=== PATIENT | female | born 1950 | race Caucasian/White ===

== ENCOUNTER 2016-08-20 18:44 | Inpatient (IN) | payer OTHER ==
[~2016-08-20] VITALS: Ht 152.4 cm; Wt 93.6 kg
[2016-08-20] MEDS: GABAPENTIN 300 MG CAP PO SCH (21:34)
[2016-08-20 23:54] LABS: ADD UMIC YES; URINE BILIRUBIN (Dip) NEGATIVE (NEGATIVE); URINE BLOOD (Dip) NEGATIVE (NEGATIVE); URINE COLOR LT. YELLOW (YELLOW); URINE GLUCOSE (Dip) NEGATIVE (NEGATIVE); URINE KETONES (Dip) NEGATIVE (NEGATIVE); URINE LEUKOCYTE ESTERASE (Dip) TRACE (NEGATIVE); URINE NITRITE (Dip) NEGATIVE (NEGATIVE); URINE TOTAL PROTEIN (Dip) TRACE (NEGATIVE); URINE UROBILINOGEN (Dip) 0.2 E.U./dL (0.1-1.0)
[2016-08-21 00:28] LABS: BACTERIA,URINE OCCASIONAL; SQUAMOUS EPITHELIAL CELL,UR MANY; TRANSITIONAL EPI CELLS,URINE OCCASIONAL; URINE RBCS NONE SEEN /HPF (0)
[2016-08-21] MEDS ORDERED: MAGNESIUM HYDROXIDE 30ML CUP PO PRN (02:10)
[2016-08-21] MEDS ORDERED: LACTULOSE 30ML CUP PO PRN (02:10)
[2016-08-21] MEDS ORDERED: BISACODYL 10 MG SUPP PR PRN (02:10)
[2016-08-21] MEDS ORDERED: ACETAMINOPHEN 325 MG TAB PO PRN (02:10)
[2016-08-21 07:40] LABS: ADD SCAN DIFF NO
[2016-08-21 07:47] LABS: BASOPHILS % 0.3 % (0.0-2.0); EOSINOPHILS # 0.3 10^3/ul (0.0-0.5); EOSINOPHILS % 6.3 % (0.0-7.0); HEMATOCRIT 24.7 % (37.0-47.0); HEMOGLOBIN 7.2 g/dl (12.0-16.0); LYMPHOCYTES # 1.3 10^3/ul (0.8-2.9); LYMPHOCYTES % 32.7 % (15.0-51.0); MEAN CORPUSCULAR HEMOGLOBIN 21.9 pg (29.0-33.0); MEAN CORPUSCULAR HGB CONC 29.1 g/dl (32.0-37.0); MEAN CORPUSCULAR VOLUME 75.1 fl (82.0-101.0); MONOCYTE # 0.4 10^3/ul (0.3-0.9); MONOCYTES % 9.9 % (0.0-11.0); NEUTROPHILS % 50.5 % (39.0-77.0); PLATELET COUNT 153 10^3/UL (140-415); RED BLOOD COUNT 3.29 10^6/ul (4.20-5.40); RED CELL DISTRIBUTION WIDTH 13.5 % (11.5-14.5); WHITE BLOOD COUNT 3.9 10^3/ul (4.8-10.8)
[2016-08-21 07:59] LABS: POTASSIUM 3.8 mmol/L (3.5-5.1)
[2016-08-21 08:00] VITALS: BP 150/67; PULSE 64; RESP 18
[2016-08-21 08:01] LABS: ALBUMIN/GLOBULIN RATIO 1.03; BILIRUBIN,INDIRECT 0.1 mg/dl (0-1.1); BILIRUBIN,TOTAL 0.1 mg/dl (0.2-1.3); CREATININE 1.17 mg/dl (0.44-1.00); TOTAL PROTEIN 5.9 g/dl (6.1-8.1)
[2016-08-21 08:02] LABS: CALCIUM 8.2 mg/dl (8.4-10.2)
--- NOTE | 2016-08-21 08:48 | CONS ---
DATE OF ADMISSION: 08/20/2016 DATE OF CONSULTATION: 08/21/2016 TYPE OF CONSULTATION: Rehabilitation post-admission evaluation. REHABILITATION IMPAIRMENT CATEGORY: Other orthopedic injury with patient status post right total kn ee replacement. ACTIVE COMORBIDITIES: 1. Acute pain syndrome. 2. Status post acute respiratory failure. 3. Diabetes mellitus. 4. Hypertension. 5. Gastroesophageal reflux disease. 6. Impairments in self-care and mobility. HISTORY OF PRESENT ILLNESS: The patient is a very pleasant 66-year-old female with a history of hyp ertension, diabetes mellitus and gastroesophageal reflux disease who underwent a right total knee re placement for severe increasing right knee pain that failed conservative measures. The patient's po stoperative course was notable for acute respiratory failure and acute on chronic diastolic heart fa ilure. The patient was noted to be significantly impaired from self-care and mobility as compared t o baseline, and has been cleared to transfer to the rehabilitation unit for comprehensive interdisci plinary rehab care. FUNCTIONAL HISTORY: Prior to recent events, she was independent in self-care tasks and mobility. C urrently, she requires maximal assist for self-care and moderate to maximal assist for mobility task s. I have reviewed the preadmission screen and the patient's current functional status is consistent wi th the preadmission screen. SOCIAL HISTORY: The patient lives at home with family and hopes to return there upon discharge. PAST MEDICAL HISTORY: 1. Hypertension. 2. Diabetes mellitus. 3. Hypercholesterolemia. 4. Gastroesophageal reflux disease. 5. History of hernia repair. 6. History of left ear mastoidectomy. 7. History of hemorrhoidectomy. CURRENT MEDICATIONS: 1. Norvasc 10 mg p.o. daily. 2. Tenormin 50 mg p.o. daily. 3. Insulin sliding scale. 4. Colace 100 mg p.o. b.i.d. 5. Neurontin 300 mg p.o. t.i.d. 6. Hydrochlorothiazide 25 mg p.o. daily. 7. Cozaar 100 mg p.o. daily. 8. Protonix 40 mg p.o. daily. 9. Xarelto 10 mg p.o. daily. 10. Senokot p.o. daily p.r.n. ALLERGIES: IODINE. PHYSICAL EXAMINATION: VITAL SIGNS: The patient is currently afebrile with stable vital signs. HEENT: Extraocular motions intact. Oropharynx clear. NECK: Supple. LUNGS: Clear anteriorly. CARDIAC: S1, S2. ABDOMEN: Soft, nontender, positive bowel sounds. NEUROLOGIC: She is awake and alert and oriented x3. She can follow simple 1-step commands. Crania l nerves are grossly intact. She demonstrates good strength in bilateral upper extremity and the le ft lower extremity. Dorsiflexion and plantar flexion intact on the right. PLAN: The patient has been admitted for comprehensive interdisciplinary acute rehab and is anticipa butch to tolerate 3 hours of daily therapy in divided doses for at least 5/7 days a week. The treatme nt plan will include: 1. Physical therapy to focus on bed mobility, transfers, and household ambulation with the goal of having patient reach standby assist level. 2. Occupational therapy to focus on hygiene, grooming, dressing, bathing, and toileting activities with the goal of having the patient reach standby assist level. 3. Rehabilitation nursing for carryover of therapeutic interventions, the goal of continent of jerry l and bladder, and the goal of pain adequately managed on oral medications. REHABILITATION BARRIER: Pain. INTERVENTION FOR BARRIER: Comprehensive interdisciplinary approach. ESTIMATED LENGTH OF STAY: 12 days. DISPOSITION GOAL: Home. I acknowledge that I performed a full physical examination on this patient within 24 hours of admiss ion to the rehabilitation unit, and I believe the patient is a good candidate for comprehensive inte rdisciplinary rehab care and is anticipated to make reasonable goals in a reasonable period of time as outlined above. Dictated By: PIPER HOLT/YUNIOR Conf#: [id number] DID#: [id number]
[2016-08-21] MEDS: GABAPENTIN 300 MG CAP PO SCH ×3 (08:53→21:18)
[2016-08-21] MEDS: HYDROCODONE/APAP (5/325) TAB PO PRN (08:53)
[2016-08-21] MEDS: HYDROCHLOROTHIAZIDE 25 MG TAB PO SCH (08:54)
[2016-08-21] MEDS: AMLODIPINE 10 MG TAB PO SCH (08:55)
[2016-08-21] MEDS: ATENOLOL 50 MG TAB PO SCH (08:55)
[2016-08-21] MEDS: DOCUSATE SODIUM 100 MG CAP PO SCH ×2 (08:55→21:18)
[2016-08-21 08:56] VITALS: BP 121/59; PULSE 58; RESP 18
[2016-08-21] MEDS ORDERED: GLUCOSE GEL 15 GRAM TUBE BUCCAL PRN (09:00)
[2016-08-21] MEDS ORDERED: GLUCAGON 1 MG INJ IM PRN (09:00)
[2016-08-21] MEDS ORDERED: GLUCOSE GEL 15 GRAM TUBE PO PRN ×2 (09:00)
[2016-08-21] MEDS ORDERED: DEXTROSE 50% 50 ML SYRINGE IV PRN ×2 (09:00)
--- NOTE | 2016-08-21 10:11 | HP ---
DATE OF ADMISSION: 08/20/2016 HISTORY OF PRESENT ILLNESS: The patient is a 66-year-old female with a past medical history of hype rtension, diabetes, and GERD, who underwent a right total knee replacement for severe increasing rig ht knee pain that failed conservative measures. The patient's postoperative course was notable for acute respiratory failure, acute on chronic diastolic heart failure. The patient is being transferr ed to the acute rehab for further physical therapy and rehabilitation. She was previously independe nt. She is tolerating her medications and therapies currently. PAST MEDICAL HISTORY: Significant for hypertension, diabetes, hypercholesterolemia, GERD, hernia re pair, left ear mastoidectomy history of hemorrhoidectomy. MEDICATIONS: Include: 1. Norvasc. 2. Tenormin. 3. Insulin sliding scale. 4. Colace. 5. Neurontin. 6. Hydrochlorothiazide. 7. Cozaar 8. Protonix. 9. Xarelto. 10. Senokot. ALLERGIES: IODINE. SOCIAL HISTORY: She does not smoke, drink or use drugs. FAMILY HISTORY: No history of kidney disease. REVIEW OF SYSTEMS: A 14-point review of systems was attempted and negative unless otherwise stated . PHYSICAL EXAMINATION: VITAL SIGNS: Temperature 98.3, blood pressure 121/59. HEENT: Normocephalic, atraumatic. Pupils equal, round and reactive. NECK: Supple. HEART: Regular rate and rhythm. ABDOMEN: Soft, nontender, nondistended. Bowel sounds present. LABORATORY EVALUATION: Shows white count 3.9, hemoglobin 7.2, hematocrit 25. Sodium 137, potassium 3.8, BUN 25, creatinine 1.1, albumin 3.0. UA was reviewed on microscopy. Chest x-ray was reviewed with the radiologist. IMPRESSION: 1. Status post right total knee replacement, with failure of outpatient therapy. The patient was a dmitted to acute rehab for physical therapy, as outlined by Dr. Mat Rosales. 2. Postoperative acute respiratory failure, . Appears fairly stable at this time. Consider c ardiology evaluation. 3. Hypertension. Well controlled. Continue regular medications. 4. Diabetes. On sliding scale. Continue regular. 5. Leukopenia. Chart review of old records. Will repeat labs in the morning. 6. Anemia, fairly marked. Check iron stores and start supplemental iron. Probably related to bloo d loss perioperatively. 7. Hyperlipidemia. Continue regular medications. 8. Prophylaxis. On Xarelto. Dictated By: ALEKSANDR CREWS MD DF/YUNIOR Conf#: [id number] DID#: [id number]
[2016-08-21 10:40] VITALS: BP 137/63; PULSE 64; RESP 18
[2016-08-21] MEDS: INSULIN ASPART [NOVOLOG] 3 ML PEN SC SCH ×3 (11:44→21:00)
[2016-08-21] MEDS: ACCU-CHEK XX SCH ×3 (11:44→21:19)
[2016-08-21] MEDS: FERROUS SULFATE (EC) 325 MG TAB PO SCH ×2 (12:00→21:18)
[2016-08-21] MEDS: RIVAROXABAN 10 MG TABLET PO SCH (17:24)
[2016-08-21] MEDS: traMADol 50 MG TAB PO PRN (19:35)
[2016-08-21 20:04] VITALS: BP 138/63; RESP 18
[2016-08-21] MEDS: SENNA TAB PO SCH (21:18)
[2016-08-21] MEDS: ATORVASTATIN 10 MG TAB PO SCH (21:18)
[2016-08-22] MEDS: HYDROCODONE/APAP (5/325) TAB PO PRN ×5 (01:17→23:29)
[2016-08-22] MEDS ORDERED: ACCU-CHEK XX SCH (02:00)
[2016-08-22 06:44] LABS: ADD SCAN DIFF NO
[2016-08-22 06:52] LABS: HEMATOCRIT 25.1 % (37.0-47.0); HEMOGLOBIN 7.4 g/dl (12.0-16.0); MEAN CORPUSCULAR HGB CONC 29.5 g/dl (32.0-37.0); MEAN CORPUSCULAR VOLUME 74.5 fl (82.0-101.0); MEAN PLATELET VOLUME 10.5 fl (7.4-10.4); PLATELET COUNT 176 10^3/UL (140-415); RED BLOOD COUNT 3.37 10^6/ul (4.20-5.40); RED CELL DISTRIBUTION WIDTH 13.6 % (11.5-14.5); WHITE BLOOD COUNT 4.2 10^3/ul (4.8-10.8)
[2016-08-22 07:03] LABS: IRON 30 ug/dl (35-150); POTASSIUM 3.9 mmol/L (3.5-5.1)
[2016-08-22 07:05] LABS: CREATININE 1.17 mg/dl (0.44-1.00)
[2016-08-22 07:06] LABS: CALCIUM 8.6 mg/dl (8.4-10.2); PHOSPHORUS 4.1 mg/dl (2.5-4.9)
[2016-08-22 07:07] LABS: MAGNESIUM 2.3 mg/dl (1.7-2.5)
[2016-08-22 07:12] LABS: TOTAL IRON BINDING CAPACITY 234 ug/dl (241-421)
[2016-08-22] MEDS: INSULIN ASPART [NOVOLOG] 3 ML PEN SC SCH (07:35)
[2016-08-22] MEDS: ACCU-CHEK XX SCH (07:51)
[2016-08-22 08:12] VITALS: BP 152/72; PULSE 64; RESP 20
[2016-08-22 08:16] LABS: EOSINOPHILS # 0.2 10^3/ul (0.0-0.5); LYMPHOCYTES # 1.8 10^3/ul (0.8-2.9); MONOCYTE # 0.4 10^3/ul (0.3-0.9); NEUTROPHIL # 1.5 10^3/ul (1.6-7.5)
[2016-08-22 08:18] LABS: ANISOCYTOSIS 1+; HYPOCHROMASIA 2+; MICROCYTOSIS 1+; OVALOCYTES 1+; PLATELET ESTIMATE PLT APPEAR ADEQUATE
[2016-08-22] MEDS: FERROUS SULFATE (EC) 325 MG TAB PO SCH ×2 (08:44→20:49)
[2016-08-22] MEDS: GABAPENTIN 300 MG CAP PO SCH ×3 (08:44→20:49)
[2016-08-22] MEDS: DOCUSATE SODIUM 100 MG CAP PO SCH ×2 (08:44→20:49)
[2016-08-22] MEDS: AMLODIPINE 10 MG TAB PO SCH (08:45)
[2016-08-22] MEDS: HYDROCHLOROTHIAZIDE 25 MG TAB PO SCH (08:45)
[2016-08-22] MEDS: ATENOLOL 50 MG TAB PO SCH (08:45)
--- NOTE | 2016-08-22 11:39 | CONS ---
Date/Time of Note Date/Time of Note DATE: 08/22/16 TIME: 11:35 Consult Date/Type/Reason Admit Date/Time Aug 20, 2016 at 18:44 Initial Consult Date Subjective The patient is a 66-year-old female with a past medical history of hypertension , diabetes, and GERD, who underwent a right total knee replacement for severe increasing right knee pain that failed conservative measures. The patient's postoperative course was notable for acute respiratory failure, acute on chronic diastolic heart failure. The patient is being transferred to the acute rehab for further physical therapy and rehabilitation. She was previously independent. She is tolerating her medications and therapies currently. PAST MEDICAL HISTORY: Significant for hypertension, diabetes, hypercholesterolemia, GERD, hernia repair, left ear mastoidectomy history of hemorrhoidectomy. REVIEW OF SYSTEMS: A 14-point review of systems was attempted and negative unless otherwise stated. PHYSICAL EXAMINATION: HEENT: Normocephalic, atraumatic. Pupils equal, round and reactive. NECK: Supple. HEART: Regular rate and rhythm. ABD: Soft nontender Lungs: CTAB EXT. no cce Objective Vital Signs Date Time Temp Pulse Resp B/P Pulse Ox O2 Delivery O2 Flow Rate FiO2 08/22/16 08:12 98.2 64 20 152/72 92 Nasal Cannula 2.0 Intake and Output 08/21/16 08/21/16 08/22/16 15:00 23:00 07:00 Intake Total 240 ml 850 ml 600 ml Output Total 950 ml 780 ml Balance -710 ml 70 ml 600 ml Results/Medications Result Diagram: 08/22/16 0610 08/22/16 0610 Results 24 hrs Laboratory Tests Test 08/21/16 11:38 08/21/16 16:59 08/21/16 20:32 08/22/16 06:10 Bedside Glucose 124 160 151 Anion Gap 13 Anisocytosis 1+ Band Neutrophils % 2.0 Blood Urea Nitrogen 25 H Calcium Level 8.6 Carbon Dioxide Level 35 H Chloride Level 97 Creatinine 1.17 H Eosinophils # 0.2 Eosinophils % 5.0 Glucose Level 118 Hematocrit 25.1 L Hemoglobin 7.4 L Hypochromasia 2+ Iron Level 30 L Lymphocytes # 1.8 Lymphocytes % 43.0 Magnesium Level 2.3 Mean Corpuscular Hemoglobin 22.0 L Mean Corpuscular Hemoglobin Concent 29.5 L Mean Corpuscular Volume 74.5 L Mean Platelet Volume 10.5 H Microcytosis 1+ Monocytes # 0.4 Monocytes % 10.0 Neutrophils # 1.5 L Neutrophils % 35.0 L Ovalocytes 1+ Percent Iron Saturation 13 L Phosphorus Level 4.1 Platelet Count 176 Platelet Estimate PLT APPEAR ADEQUATE Potassium Level 3.9 Reactive Lymphocytes % 5.0 Red Blood Count 3.37 L Red Cell Distribution Width 13.6 Sodium Level 141 Total Iron Binding Capacity 234 L White Blood Count 4.2 L Test 08/22/16 07:37 Bedside Glucose 124 Medications Current Medications Acetaminophen (Tylenol Tab) 650 mg Q4H PRN PO HEADACHE OR TEMP > 101; Start at 20:30 Amlodipine Besylate (Norvasc) 10 mg DAILY PO Last administered on 08/22/16 08: 45; Admin Dose 10 MG; Start 08/21/16 at 09:00 Atenolol (Tenormin) 50 mg DAILY PO Last administered on 08/22/16 08:45; Admin Dose 50 MG; Start 08/21/16 at 09:00 Gabapentin (Neurontin) 300 mg TID PO Last administered on 08/22/16 08:44; Admin Dose 300 MG; Start 08/20/16 at 21:00 Hydrochlorothiazide (Hydrochlorothiazide) 25 mg DAILY PO Last administered on 08:45; Admin Dose 25 MG; Start 08/21/16 at 09:00 Docusate Sodium (Colace) 100 mg BID PO Last administered on 08/22/16 08:44; Admin Dose 100 MG; Start 08/21/16 at 09:00 Senna (Senokot) 1 tab HS PO Last administered on 08/21/16 21:18; Admin Dose 1 TAB; Start 08/21/16 at 21:00 Acetaminophen (Tylenol Tab) 650 mg Q4H PRN PO PAIN Last administered on 04:21; Admin Dose 650 MG; Start 08/21/16 at 02:10 Bisacodyl (Dulcolax Supp) 10 mg DAILY PRN [place] CONSTIPATION; Start 08/21/16 at 02 :10 Magnesium Hydroxide (Milk Of Mag) 30 ml BID PRN PO CONSTIPATION; Start at 02:10 Lactulose (Enulose) 20 gm DAILY PRN PO CONSTIPATION; Start 08/21/16 at 02:10 Acetaminophen/ Hydrocodone Bitart ([place] (5/325)) 1 tab Q4H PRN PO MODERATE PAIN LEVEL 4-6 Last administered on 08/22/16 07:57; Admin Dose 1 TAB; Start at 08:30 Tramadol HCl (Ultram) 25 mg Q4H PRN PO PAIN LEVEL 1-5 Last administered on 08/21 19:35; Admin Dose 25 MG; Start 08/21/16 at 09:00 Diagnostic Test (Pha) (Accucheck) 1 ea 02 XX ; Start 08/22/16 at 02:00 Miscellaneous Information 1 ea NOTE XX ; Start 08/21/16 at 09:00 Glucose (Glutose) 15 gm Q15M PRN PO DECREASED GLUCOSE; Start 08/21/16 at 09:00 Glucose (Glutose) 22.5 gm Q15M PRN PO DECREASED GLUCOSE; Start 08/21/16 at 09: 00 Dextrose (D50w Syringe) 25 ml Q15M PRN IV DECREASED GLUCOSE; Start 08/21/16 at 09:00 Dextrose (D50w Syringe) 50 ml Q15M PRN IV DECREASED GLUCOSE; Start 08/21/16 at 09:00 Glucagon (Glucagen) 1 mg Q15M PRN IM DECREASED GLUCOSE; Start 08/21/16 at 09:00 Glucose (Glutose) 15 gm Q15M PRN BUCCAL DECREASED GLUCOSE; Start 08/21/16 at 09 :00 Atorvastatin Calcium (Lipitor) 10 mg HS PO Last administered on 08/21/16 21:18 ; Admin Dose 10 MG; Start 08/21/16 at 21:00 Ferrous Sulfate (Ferrous Sulfate (Ec)) 325 mg BID PO Last administered on 08:44; Admin Dose 325 MG; Start 08/21/16 at 10:00 Assessment/Plan Chief Complaint/Hosp Course IMPRESSION: 1. Status post right total knee replacement, with failure of outpatient therapy. The patient was admitted to acute rehab for physical therapy, as outlined by Dr. Mat Rosales. 2. Postoperative acute respiratory failure Appears fairly stable at this time.. 3. Hypertension. Well controlled. Continue regular medications. 4. Diabetes. On sliding scale. Continue regular. 5. Leukopenia. Chart review of old records. Will repeat labs in the morning. 6. Anemia, fairly marked. Check iron stores and start supplemental iron. Probably related to blood loss perioperatively. 7. Hyperlipidemia. Continue regular medications. 8. Prophylaxis. On Xarelto. Problems: ALEKSANDR CREWS MD Aug 22, 2016 11:39
[2016-08-22] MEDS ORDERED: SOD CHLORIDE 0.9% 250 ML IV* ONE (11:42)
[2016-08-22 12:01] LABS: ADD UMIC NO; URINE BILIRUBIN (Dip) NEGATIVE (NEGATIVE); URINE BLOOD (Dip) NEGATIVE (NEGATIVE); URINE COLOR LT. YELLOW (YELLOW); URINE GLUCOSE (Dip) NEGATIVE (NEGATIVE); URINE KETONES (Dip) NEGATIVE (NEGATIVE); URINE LEUKOCYTE ESTERASE (Dip) NEGATIVE (NEGATIVE); URINE NITRITE (Dip) NEGATIVE (NEGATIVE); URINE TOTAL PROTEIN (Dip) NEGATIVE (NEGATIVE); URINE UROBILINOGEN (Dip) 0.2 E.U./dL (0.1-1.0)
[2016-08-22] MEDS: RIVAROXABAN 10 MG TABLET PO SCH (17:23)
[2016-08-22] MEDS: metFORMIN 500 MG TAB PO SCH (17:23)
[2016-08-22 19:41] VITALS: BP 130/58; RESP 18
[2016-08-22] MEDS: ATORVASTATIN 10 MG TAB PO SCH (20:48)
[2016-08-22] MEDS: SENNA TAB PO SCH (20:49)
[2016-08-22] MEDS: traMADol 50 MG TAB PO PRN (20:58)
[2016-08-23] MEDS: HYDROCODONE/APAP (5/325) TAB PO PRN ×5 (05:45→22:56)
[2016-08-23 08:45] VITALS: BP 145/67; PULSE 58; RESP 18
[2016-08-23] MEDS: ACETAMINOPHEN 325 MG TAB PO PRN ×3 (08:58→21:40)
[2016-08-23] MEDS: FERROUS SULFATE (EC) 325 MG TAB PO SCH ×2 (08:59→20:47)
[2016-08-23] MEDS: HYDROCHLOROTHIAZIDE 25 MG TAB PO SCH (08:59)
[2016-08-23] MEDS: metFORMIN 500 MG TAB PO SCH ×2 (08:59→17:31)
[2016-08-23] MEDS: GABAPENTIN 300 MG CAP PO SCH ×3 (08:59→20:47)
[2016-08-23] MEDS: ATENOLOL 50 MG TAB PO SCH (09:00)
[2016-08-23] MEDS: AMLODIPINE 10 MG TAB PO SCH (09:00)
[2016-08-23] MEDS: DOCUSATE SODIUM 100 MG CAP PO SCH ×2 (09:00→20:47)
--- NOTE | 2016-08-23 12:02 | CONS ---
Date/Time of Note Date/Time of Note DATE: 08/23/16 TIME: 12:01 Consult Date/Type/Reason Admit Date/Time Aug 20, 2016 at 18:44 Initial Consult Date Objective Vital Signs Date Time Temp Pulse Resp B/P Pulse Ox O2 Delivery O2 Flow Rate FiO2 08/23/16 08:45 98.4 58 18 145/67 96 Room Air 08/22/16 20:50 2.0 Intake and Output 08/22/16 08/22/16 08/23/16 14:59 22:59 06:59 Intake Total 1300 ml 1560 ml 780 ml Output Total 201 ml 200 ml Balance 1099 ml 1360 ml 780 ml INTERDISCIPLINARY TEAM CONFERENCE BOWEL- Cont BLADDER-Cont SKIN- intact OT- DRESSING-mod BATHING-mod TOILETING-mod PT- BED MOBILITY-mod TRANSFERS-mod AMBULATION-mod W.C. MOBILITY-min A/P- Interdisciplinary team conference held today. Please see interdisciplinary sheet. Working toward d.c. on 09/01 with post discharge follow up of physical therapy, occupational therapy. Results/Medications Result Diagram: 08/22/16 0610 08/22/16 0610 Results 24 hrs Laboratory Tests Test 08/22/16 12:08 08/22/16 20:42 Bedside Glucose 97 145 Medications Current Medications Acetaminophen (Tylenol Tab) 650 mg Q4H PRN PO HEADACHE OR TEMP > 101 Last administered on 08/23/16 08:58; Admin Dose 650 MG; Start 08/20/16 at 20:30 Amlodipine Besylate (Norvasc) 10 mg DAILY PO Last administered on 08/23/16 09: 00; Admin Dose 10 MG; Start 08/21/16 at 09:00 Atenolol (Tenormin) 50 mg DAILY PO Last administered on 08/22/16 08:45; Admin Dose 50 MG; Start 08/21/16 at 09:00 Gabapentin (Neurontin) 300 mg TID PO Last administered on 08/23/16 08:59; Admin Dose 300 MG; Start 08/20/16 at 21:00 Hydrochlorothiazide (Hydrochlorothiazide) 25 mg DAILY PO Last administered on 08:59; Admin Dose 25 MG; Start 08/21/16 at 09:00 Docusate Sodium (Colace) 100 mg BID PO Last administered on 08/22/16 20:49; Admin Dose 100 MG; Start 08/21/16 at 09:00 Senna (Senokot) 1 tab HS PO Last administered on 08/22/16 20:49; Admin Dose 1 TAB; Start 08/21/16 at 21:00 Acetaminophen (Tylenol Tab) 650 mg Q4H PRN PO PAIN Last administered on 04:21; Admin Dose 650 MG; Start 08/21/16 at 02:10 Bisacodyl (Dulcolax Supp) 10 mg DAILY PRN [place] CONSTIPATION; Start 08/21/16 at 02 :10 Magnesium Hydroxide (Milk Of Mag) 30 ml BID PRN PO CONSTIPATION; Start at 02:10 Lactulose (Enulose) 20 gm DAILY PRN PO CONSTIPATION; Start 08/21/16 at 02:10 Acetaminophen/ Hydrocodone Bitart ([place] (5/325)) 1 tab Q4H PRN PO MODERATE PAIN LEVEL 4-6 Last administered on 08/23/16 09:46; Admin Dose 1 TAB; Start at 08:30 Tramadol HCl (Ultram) 25 mg Q4H PRN PO PAIN LEVEL 1-5 Last administered on 08/22 20:58; Admin Dose 25 MG; Start 08/21/16 at 09:00 Miscellaneous Information 1 ea NOTE XX ; Start 08/21/16 at 09:00 Glucose (Glutose) 15 gm Q15M PRN PO DECREASED GLUCOSE; Start 08/21/16 at 09:00 Glucose (Glutose) 22.5 gm Q15M PRN PO DECREASED GLUCOSE; Start 08/21/16 at 09: 00 Dextrose (D50w Syringe) 25 ml Q15M PRN IV DECREASED GLUCOSE; Start 08/21/16 at 09:00 Dextrose (D50w Syringe) 50 ml Q15M PRN IV DECREASED GLUCOSE; Start 08/21/16 at 09:00 Glucagon (Glucagen) 1 mg Q15M PRN IM DECREASED GLUCOSE; Start 08/21/16 at 09:00 Glucose (Glutose) 15 gm Q15M PRN BUCCAL DECREASED GLUCOSE; Start 08/21/16 at 09 :00 Atorvastatin Calcium (Lipitor) 10 mg HS PO Last administered on 08/22/16 20:48 ; Admin Dose 10 MG; Start 08/21/16 at 21:00 Ferrous Sulfate (Ferrous Sulfate (Ec)) 325 mg BID PO Last administered on t 08:59; Admin Dose 325 MG; Start 08/21/16 at 10:00 PIPER WAGONER MD Aug 23, 2016 12:01 PIPER WAGONER MD Aug 23, 2016 12:01
[2016-08-23 16:24] LABS: ADD SCAN DIFF NO
[2016-08-23 16:27] LABS: BASOPHILS % 0.3 % (0.0-2.0); EOSINOPHILS # 0.3 10^3/ul (0.0-0.5); EOSINOPHILS % 4.7 % (0.0-7.0); HEMATOCRIT 34.2 % (37.0-47.0); HEMOGLOBIN 10.2 g/dl (12.0-16.0); LYMPHOCYTES # 2.1 10^3/ul (0.8-2.9); LYMPHOCYTES % 32.2 % (15.0-51.0); MEAN CORPUSCULAR HEMOGLOBIN 22.9 pg (29.0-33.0); MEAN CORPUSCULAR HGB CONC 29.8 g/dl (32.0-37.0); MEAN CORPUSCULAR VOLUME 76.9 fl (82.0-101.0); MEAN PLATELET VOLUME 11.1 fl (7.4-10.4); MONOCYTE # 0.7 10^3/ul (0.3-0.9); MONOCYTES % 11.3 % (0.0-11.0); NEUTROPHIL # 3.2 10^3/ul (1.6-7.5); NEUTROPHILS % 50.9 % (39.0-77.0); PLATELET COUNT 243 10^3/UL (140-415); RED BLOOD COUNT 4.45 10^6/ul (4.20-5.40); RED CELL DISTRIBUTION WIDTH 14.7 % (11.5-14.5); WHITE BLOOD COUNT 6.4 10^3/ul (4.8-10.8)
--- NOTE | 2016-08-23 17:08 | PN ---
DATE: 08/23/2016 SUBJECTIVE: The patient received blood transfusion yesterday, tolerated well. No other acute event s noted. No hemoptysis, hematemesis. OBJECTIVE: VITAL SIGNS: Blood pressure 145/67, respiration 18, pulse 58, temperature 98.4. HEENT: Head is normocephalic. NECK: Supple. HEART: Regular rate. LUNGS: Show diminished breath sounds at the base. ABDOMEN: Soft, nontender to palpation. No rebound or guarding. EXTREMITIES: Negative for clubbing, cyanosis. No edema. DERMATOLOGIC: No rashes. MUSCULOSKELETAL: No joint effusions. NEUROLOGIC: No change in exam. MEDICATIONS: The patient's medications have been reviewed. LABORATORY DATA: Currently pending. ASSESSMENT AND PLAN: 1. Status post total right knee replacement. The patient is currently stable. Continue PT, OT. C ontinue deep venous thrombosis prophylaxis with Xarelto. 2. Anemia. The patient is status post blood transfusion. No overt evidence of gastrointestinal bl eed. Continue to monitor H and H levels closely while the patient is on Xarelto. 3. Hypertension. Continue blood pressure regimen. 4. Diabetes. Continue current insulin regimen. Continue sliding scale, Accu-Cheks. 5. Chronic kidney disease stage III. Etiology is likely secondary to hypertension and diabetes. T he patient's urinalysis shows no active sediment. At this point, continue current treatment plan, s upportive care, renally dose all meds. 6. Hypertension. Blood pressure controlled. Continue current blood pressure regimen. 7. Dyslipidemia. Continue statin therapy. 8. General debility. Continue PT, OT. 9. Deep venous thrombosis prophylaxis. Continue proton pump inhibitor and Xarelto. 10. Respiratory failure, etiology is postoperative continue to monitor. Continue supplemental oxyg en. 11. Leukopenia. Etiology is unclear. Continue to observe. Consider a hematology evaluation. Dictated By: RUBY MARES/YUNIOR Conf#: [id number] DID#: [id number]
[2016-08-23] MEDS: RIVAROXABAN 10 MG TABLET PO SCH (17:31)
[2016-08-23 19:41] VITALS: BP 155/69; RESP 20
[2016-08-23] MEDS: ATORVASTATIN 10 MG TAB PO SCH (20:47)
[2016-08-23] MEDS: SENNA TAB PO SCH (20:48)
[2016-08-24] MEDS: HYDROCODONE/APAP (5/325) TAB PO PRN ×5 (03:36→20:26)
[2016-08-24 06:41] LABS: ADD SCAN DIFF NO
[2016-08-24 06:46] LABS: BASOPHILS % 0.6 % (0.0-2.0); EOSINOPHILS # 0.2 10^3/ul (0.0-0.5); EOSINOPHILS % 4.3 % (0.0-7.0); HEMATOCRIT 29.2 % (37.0-47.0); LYMPHOCYTES # 1.7 10^3/ul (0.8-2.9); MEAN CORPUSCULAR HEMOGLOBIN 23.3 pg (29.0-33.0); MEAN CORPUSCULAR HGB CONC 30.8 g/dl (32.0-37.0); MEAN CORPUSCULAR VOLUME 75.6 fl (82.0-101.0); MEAN PLATELET VOLUME 10.9 fl (7.4-10.4); MONOCYTE # 0.6 10^3/ul (0.3-0.9); MONOCYTES % 11.3 % (0.0-11.0); NEUTROPHIL # 2.5 10^3/ul (1.6-7.5); NEUTROPHILS % 50.2 % (39.0-77.0); PLATELET COUNT 223 10^3/UL (140-415); RED BLOOD COUNT 3.86 10^6/ul (4.20-5.40); RED CELL DISTRIBUTION WIDTH 14.8 % (11.5-14.5); WHITE BLOOD COUNT 5.1 10^3/ul (4.8-10.8)
[2016-08-24 07:00] VITALS: BP 153/67; RESP 18
[2016-08-24 07:15] LABS: POTASSIUM 3.8 mmol/L (3.5-5.1)
[2016-08-24 07:17] LABS: CREATININE 1.03 mg/dl (0.44-1.00)
[2016-08-24 07:18] LABS: CALCIUM 8.6 mg/dl (8.4-10.2); MAGNESIUM 2.2 mg/dl (1.7-2.5); PHOSPHORUS 4.1 mg/dl (2.5-4.9)
[2016-08-24] MEDS: GABAPENTIN 300 MG CAP PO SCH ×3 (08:27→20:22)
[2016-08-24] MEDS: metFORMIN 500 MG TAB PO SCH ×2 (08:28→17:35)
[2016-08-24] MEDS: DOCUSATE SODIUM 100 MG CAP PO SCH ×2 (08:28→20:22)
[2016-08-24] MEDS: FERROUS SULFATE (EC) 325 MG TAB PO SCH ×2 (08:28→20:22)
[2016-08-24] MEDS: AMLODIPINE 10 MG TAB PO SCH (08:28)
[2016-08-24] MEDS: ATENOLOL 50 MG TAB PO SCH (08:28)
[2016-08-24] MEDS: HYDROCHLOROTHIAZIDE 25 MG TAB PO SCH (08:28)
--- NOTE | 2016-08-24 10:32 | PN ---
DATE: 08/24/2016 SUBJECTIVE: The patient is stable, no acute events overnight. The patient is complaining of increa sed pain and would like to have her pain medications increased. No other events noted. OBJECTIVE: VITAL SIGNS: Blood pressure 153/67, respirations 18, pulse 77, temperature 99.0. HEENT: Head is normocephalic. NECK: Supple. HEART: Regular rate. LUNGS: Show diminished breath sounds at the bases. ABDOMEN: Soft, nontender to palpation. No rebound or guarding. EXTREMITIES: Negative for clubbing, cyanosis. No edema. DERMATOLOGIC: No rashes. MUSCULOSKELETAL: The patient has a dressing and brace over knee. NEUROLOGIC: No change in exam. MEDICATIONS: The patient's medications were reviewed. LABORATORY DATA: Shows sodium 138, potassium 3.8, chloride 97, BUN 27, creatinine 1.03. White coun t 5.1, hemoglobin 9.0, hematocrit 29.2, platelet count 223. ASSESSMENT AND PLAN: 1. Status post total right knee replacement. The patient is currently stable. Continue PT, OT. Continue deep venous thrombosis prophylaxis with Xarelto. 2. Anemia. The patient is status post blood transfusion. Continue to monitor hemoglobin and hemat ocrit levels closely. 3. Hypertension. Continue current blood pressure regimen. 4. Diabetes. Continue current insulin regimen, Accu-Cheks and insulin sliding scale. 5. Chronic kidney disease, stage III. Etiology is likely from diabetes, hypertension. Continue cu rrent treatment plan. Continue supportive care, renally dose all meds, avoid nephrotoxins. 6. Dyslipidemia. Continue statin therapy. 7. Deep venous thrombosis and gastrointestinal prophylaxis. Continue proton pump inhibitor and Xar elto. 8. Status post respiratory failure. 9. Leukopenia. Etiology may be secondary to underlying anemia, improved. Continue to monitor. 10. General debility. PT, OT. Dictated By: RUBY ROSE DO NR/NTS Conf#: [id number] DID#: [id number]
--- NOTE | 2016-08-24 12:11 | CONS ---
Date/Time of Note Date/Time of Note DATE: 08/24/16 TIME: 12:06 Consult Date/Type/Reason Admit Date/Time Aug 20, 2016 at 18:44 Subjective Comfortable Objective pulm-cta mod assist ambulation Vital Signs Date Time Temp Pulse Resp B/P Pulse Ox O2 Delivery O2 Flow Rate FiO2 08/24/16 08:00 Nasal Cannula 2.0 08/24/16 07:00 99.0 77 18 153/67 95 Intake and Output 08/23/16 08/23/16 08/24/16 15:00 23:00 07:00 Intake Total 680 ml 1210 ml 650 ml Output Total 600 ml 200 ml 700 ml Balance 80 ml 1010 ml -50 ml Results/Medications Result Diagram: 08/24/16 0620 08/24/16 0610 Results 24 hrs Laboratory Tests Test 08/23/16 15:35 08/24/16 06:10 08/24/16 06:20 Basophils # 0.0 0.0 Basophils % 0.3 0.6 Eosinophils # 0.3 0.2 Eosinophils % 4.7 4.3 Hematocrit 34.2 #L 29.2 L Hemoglobin 10.2 #L 9.0 L Lymphocytes # 2.1 1.7 Lymphocytes % 32.2 33.0 Mean Corpuscular Hemoglobin 22.9 L 23.3 L Mean Corpuscular Hemoglobin Concent 29.8 L 30.8 L Mean Corpuscular Volume 76.9 L 75.6 L Mean Platelet Volume 11.1 H 10.9 H Monocytes # 0.7 0.6 Monocytes % 11.3 H 11.3 H Neutrophils # 3.2 2.5 Neutrophils % 50.9 50.2 Nucleated Red Blood Cells # 0.0 0.0 Nucleated Red Blood Cells % 0.0 0.0 Platelet Count 243 # 223 Red Blood Count 4.45 # 3.86 L Red Cell Distribution Width 14.7 H 14.8 H White Blood Count 6.4 # 5.1 # Anion Gap 15 Blood Urea Nitrogen 27 H Calcium Level 8.6 Carbon Dioxide Level 30 Chloride Level 97 Creatinine 1.03 H Glucose Level 105 Magnesium Level 2.2 Phosphorus Level 4.1 Potassium Level 3.8 Sodium Level 138 Medications Current Medications Acetaminophen (Tylenol Tab) 650 mg Q4H PRN PO HEADACHE OR TEMP > 101 Last administered on 08/23/16t 21:40; Admin Dose 650 MG; Start 08/20/16 at 20:30 Amlodipine Besylate (Norvasc) 10 mg DAILY PO Last administered on 08/24/16 08: 28; Admin Dose 10 MG; Start 08/21/16 at 09:00 Atenolol (Tenormin) 50 mg DAILY PO Last administered on 08/24/16 08:28; Admin Dose 50 MG; Start 08/21/16 at 09:00 Gabapentin (Neurontin) 300 mg TID PO Last administered on 08/24/16 08:27; Admin Dose 300 MG; Start 08/20/16 at 21:00 Hydrochlorothiazide (Hydrochlorothiazide) 25 mg DAILY PO Last administered on 08:28; Admin Dose 25 MG; Start 08/21/16 at 09:00 Docusate Sodium (Colace) 100 mg BID PO Last administered on 08/24/16 08:28; Admin Dose 100 MG; Start 08/21/16 at 09:00 Senna (Senokot) 1 tab HS PO Last administered on 08/23/16 20:48; Admin Dose 1 TAB; Start 08/21/16 at 21:00 Acetaminophen (Tylenol Tab) 650 mg Q4H PRN PO PAIN Last administered on 04:21; Admin Dose 650 MG; Start 08/21/16 at 02:10 Bisacodyl (Dulcolax Supp) 10 mg DAILY PRN [place] CONSTIPATION; Start 08/21/16 at 02 :10 Magnesium Hydroxide (Milk Of Mag) 30 ml BID PRN PO CONSTIPATION; Start at 02:10 Lactulose (Enulose) 20 gm DAILY PRN PO CONSTIPATION; Start 08/21/16 at 02:10 Acetaminophen/ Hydrocodone Bitart ([place] (5/325)) 1 tab Q4H PRN PO MODERATE PAIN LEVEL 4-6 Last administered on 08/24/16 07:50; Admin Dose 1 TAB; Start at 08:30 Tramadol HCl (Ultram) 25 mg Q4H PRN PO PAIN LEVEL 1-5 Last administered on 08/22 20:58; Admin Dose 25 MG; Start 08/21/16 at 09:00 Miscellaneous Information 1 ea NOTE XX ; Start 08/21/16 at 09:00 Glucose (Glutose) 15 gm Q15M PRN PO DECREASED GLUCOSE; Start 08/21/16 at 09:00 Glucose (Glutose) 22.5 gm Q15M PRN PO DECREASED GLUCOSE; Start 08/21/16 at 09: 00 Dextrose (D50w Syringe) 25 ml Q15M PRN IV DECREASED GLUCOSE; Start 08/21/16 at 09:00 Dextrose (D50w Syringe) 50 ml Q15M PRN IV DECREASED GLUCOSE; Start 08/21/16 at 09:00 Glucagon (Glucagen) 1 mg Q15M PRN IM DECREASED GLUCOSE; Start 08/21/16 at 09:00 Glucose (Glutose) 15 gm Q15M PRN BUCCAL DECREASED GLUCOSE; Start 08/21/16 at 09 :00 Atorvastatin Calcium (Lipitor) 10 mg HS PO Last administered on 08/23/16 20:47 ; Admin Dose 10 MG; Start 08/21/16 at 21:00 Ferrous Sulfate (Ferrous Sulfate (Ec)) 325 mg BID PO Last administered on 08:28; Admin Dose 325 MG; Start 08/21/16 at 10:00 Acetaminophen/ Hydrocodone Bitart ([place] (5/325)) 2 tab Q4H PRN PO PAIN LEVEL 6 -10 Last administered on 08/24/16 11:26; Admin Dose 2 TAB; Start 08/24/16 at 10 :00 Assessment/Plan Additional Assessment/Plan Rehab- Other orthopedic injury with patient status post right total knee replacement. Progressing with rehab program Acute pain syndrome. Status post acute respiratory failure. Diabetes mellitus. Hypertension. Gastroesophageal reflux disease. PIPER WAGONER MD Aug 24, 2016 12:10
[2016-08-24] MEDS: RIVAROXABAN 10 MG TABLET PO SCH (17:35)
[2016-08-24 19:39] VITALS: BP 146/67
[2016-08-24] MEDS: ATORVASTATIN 10 MG TAB PO SCH (20:22)
[2016-08-24] MEDS: SENNA TAB PO SCH (20:22)
[2016-08-25] MEDS: HYDROCODONE/APAP (5/325) TAB PO PRN ×6 (00:56→22:18)
[2016-08-25 07:30] VITALS: BP 154/57; RESP 18
[2016-08-25] MEDS: metFORMIN 500 MG TAB PO SCH ×2 (09:06→17:59)
[2016-08-25] MEDS: DOCUSATE SODIUM 100 MG CAP PO SCH ×2 (09:06→21:01)
[2016-08-25] MEDS: FERROUS SULFATE (EC) 325 MG TAB PO SCH ×2 (09:07→21:01)
[2016-08-25] MEDS: GABAPENTIN 300 MG CAP PO SCH ×3 (09:07→21:01)
[2016-08-25] MEDS: HYDROCHLOROTHIAZIDE 25 MG TAB PO SCH (09:07)
[2016-08-25] MEDS: AMLODIPINE 10 MG TAB PO SCH (09:08)
[2016-08-25] MEDS: ATENOLOL 50 MG TAB PO SCH (09:09)
--- NOTE | 2016-08-25 10:54 | PN ---
DATE: 08/25/2016 SUBJECTIVE: The patient is stable. Pain is adequately controlled. No fevers, chills, nausea, vomi ting. OBJECTIVE: VITAL SIGNS: Blood pressure 146/67, respirations 18, pulse 77, temperature 98.0. HEENT: Head is normocephalic. NECK: Supple. HEART: Regular rate. LUNGS: Show diminished breath sounds at base. ABDOMEN: Soft, nontender to palpation. No rebound or guarding. EXTREMITIES: Negative for clubbing, cyanosis, or edema in left leg. Right leg is in a brace. It i s clean, dry, and intact. NEUROLOGIC: No change in exam. DERMATOLOGIC: No rashes. The patient has noted hyperpigmentation of lower extremities, no change. LABORATORY DATA: Has been reviewed. No new labs. ASSESSMENT AND PLAN: 1. Status post total right knee replacement. The patient is currently stable. Continue PT, OT. 2. Deep venous thrombosis prophylaxis with Xarelto. 3. Anemia. The patient is status post blood transfusion. Hemoglobin stable, continue to monitor. 4. Hypertension. Continue current blood pressure regimen. 5. Chronic kidney disease stage III. Etiology is likely multifactorial from diabetes, hypertension . Continue current treatment plan. Continue supportive care. 6. Diabetes. Continue Accu-Cheks and sliding scale. 7. Dyslipidemia. Continue statin therapy. 8. Status post respiratory failure. 9. Leukopenia, resolved. 10. Gastrointestinal and deep venous thrombosis prophylaxis. Continue proton pump inhibitor Xarelt o. 12. General debility. Continue PT, OT. Dictated By: RUBY MARES/YUNIOR Conf#: [id number] DID#: [id number]
--- NOTE | 2016-08-25 12:19 | CONS ---
Date/Time of Note Date/Time of Note DATE: 08/25/16 TIME: 12:19 Consult Date/Type/Reason Admit Date/Time Aug 20, 2016 at 18:44 Subjective Pain under good control Objective pulm-cta ambulation min assist Vital Signs Date Time Temp Pulse Resp B/P Pulse Ox O2 Delivery O2 Flow Rate FiO2 08/25/16 07:30 98.3 59 18 154/57 98 08/24/16 20:05 Nasal Cannula 2.0 Intake and Output 08/24/16 08/24/16 08/25/16 15:00 23:00 07:00 Intake Total 720 ml 360 ml 500 ml Output Total 200 ml Balance 520 ml 360 ml 500 ml Results/Medications Result Diagram: 08/24/16 0620 08/24/16 0610 Medications Current Medications Acetaminophen (Tylenol Tab) 650 mg Q4H PRN PO HEADACHE OR TEMP > 101 Last administered on 08/23/16 21:40; Admin Dose 650 MG; Start 08/20/16 at 20:30 Amlodipine Besylate (Norvasc) 10 mg DAILY PO Last administered on 08/25/16 09: 08; Admin Dose 10 MG; Start 08/21/16 at 09:00 Atenolol (Tenormin) 50 mg DAILY PO Last administered on 08/25/16 09:09; Admin Dose 50 MG; Start 08/21/16 at 09:00 Gabapentin (Neurontin) 300 mg TID PO Last administered on 08/25/16 09:07; Admin Dose 300 MG; Start 08/20/16 at 21:00 Hydrochlorothiazide (Hydrochlorothiazide) 25 mg DAILY PO Last administered on 09:07; Admin Dose 25 MG; Start 08/21/16 at 09:00 Docusate Sodium (Colace) 100 mg BID PO Last administered on 08/25/16 09:06; Admin Dose 100 MG; Start 08/21/16 at 09:00 Senna (Senokot) 1 tab HS PO Last administered on 08/24/16 20:22; Admin Dose 1 TAB; Start 08/21/16 at 21:00 Acetaminophen (Tylenol Tab) 650 mg Q4H PRN PO PAIN Last administered on 04:21; Admin Dose 650 MG; Start 08/21/16 at 02:10 Bisacodyl (Dulcolax Supp) 10 mg DAILY PRN [place] CONSTIPATION; Start 08/21/16 at 02 :10 Magnesium Hydroxide (Milk Of Mag) 30 ml BID PRN PO CONSTIPATION; Start at 02:10 Lactulose (Enulose) 20 gm DAILY PRN PO CONSTIPATION; Start 08/21/16 at 02:10 Acetaminophen/ Hydrocodone Bitart ([place] (5/325)) 1 tab Q4H PRN PO MODERATE PAIN LEVEL 4-6 Last administered on 08/24/16 07:50; Admin Dose 1 TAB; Start at 08:30 Tramadol HCl (Ultram) 25 mg Q4H PRN PO PAIN LEVEL 1-5 Last administered on 08/22 20:58; Admin Dose 25 MG; Start 08/21/16 at 09:00 Miscellaneous Information 1 ea NOTE XX ; Start 08/21/16 at 09:00 Glucose (Glutose) 15 gm Q15M PRN PO DECREASED GLUCOSE; Start 08/21/16 at 09:00 Glucose (Glutose) 22.5 gm Q15M PRN PO DECREASED GLUCOSE; Start 08/21/16 at 09: 00 Dextrose (D50w Syringe) 25 ml Q15M PRN IV DECREASED GLUCOSE; Start 08/21/16 at 09:00 Dextrose (D50w Syringe) 50 ml Q15M PRN IV DECREASED GLUCOSE; Start 08/21/16 at 09:00 Glucagon (Glucagen) 1 mg Q15M PRN IM DECREASED GLUCOSE; Start 08/21/16 at 09:00 Glucose (Glutose) 15 gm Q15M PRN BUCCAL DECREASED GLUCOSE; Start 08/21/16 at 09 :00 Atorvastatin Calcium (Lipitor) 10 mg HS PO Last administered on 08/24/16 20:22 ; Admin Dose 10 MG; Start 08/21/16 at 21:00 Ferrous Sulfate (Ferrous Sulfate (Ec)) 325 mg BID PO Last administered on 09:07; Admin Dose 325 MG; Start 08/21/16 at 10:00 Acetaminophen/ Hydrocodone Bitart ([place] (5/325)) 2 tab Q4H PRN PO PAIN LEVEL 6 -10 Last administered on 08/25/16 09:10; Admin Dose 2 TAB; Start 08/24/16 at 10 :00 Assessment/Plan Additional Assessment/Plan Rehab- Other orthopedic injury with patient status post right total knee replacement. Continue treatment program Acute pain syndrome. Status post acute respiratory failure. Diabetes mellitus. Hypertension. Gastroesophageal reflux disease. PIPER WAGONER MD Aug 25, 2016 12:19
[2016-08-25] MEDS: RIVAROXABAN 10 MG TABLET PO SCH (17:59)
[2016-08-25 19:35] VITALS: BP 151/55; RESP 20
[2016-08-25] MEDS: SENNA TAB PO SCH (21:01)
[2016-08-25] MEDS: ATORVASTATIN 10 MG TAB PO SCH (21:01)
[2016-08-26] MEDS: HYDROCODONE/APAP (5/325) TAB PO PRN ×6 (02:13→22:03)
[2016-08-26 06:54] LABS: ADD SCAN DIFF NO
[2016-08-26 07:00] LABS: BASOPHILS % 0.5 % (0.0-2.0); EOSINOPHILS # 0.2 10^3/ul (0.0-0.5); EOSINOPHILS % 4.8 % (0.0-7.0); HEMATOCRIT 29.6 % (37.0-47.0); HEMOGLOBIN 8.9 g/dl (12.0-16.0); LYMPHOCYTES # 1.7 10^3/ul (0.8-2.9); LYMPHOCYTES % 39.3 % (15.0-51.0); MEAN CORPUSCULAR HEMOGLOBIN 23.3 pg (29.0-33.0); MEAN CORPUSCULAR HGB CONC 30.1 g/dl (32.0-37.0); MEAN CORPUSCULAR VOLUME 77.5 fl (82.0-101.0); MEAN PLATELET VOLUME 10.7 fl (7.4-10.4); MONOCYTE # 0.5 10^3/ul (0.3-0.9); MONOCYTES % 11.6 % (0.0-11.0); NEUTROPHIL # 1.9 10^3/ul (1.6-7.5); NEUTROPHILS % 43.3 % (39.0-77.0); PLATELET COUNT 291 10^3/UL (140-415); RED BLOOD COUNT 3.82 10^6/ul (4.20-5.40); RED CELL DISTRIBUTION WIDTH 15.4 % (11.5-14.5); WHITE BLOOD COUNT 4.4 10^3/ul (4.8-10.8)
[2016-08-26 07:11] LABS: POTASSIUM 4.1 mmol/L (3.5-5.1)
[2016-08-26 07:13] LABS: CREATININE 1.14 mg/dl (0.44-1.00)
[2016-08-26 07:14] LABS: MAGNESIUM 2.2 mg/dl (1.7-2.5)
[2016-08-26 07:30] VITALS: BP 133/61; RESP 18
[2016-08-26] MEDS: GABAPENTIN 300 MG CAP PO SCH ×3 (09:21→21:31)
[2016-08-26] MEDS: metFORMIN 500 MG TAB PO SCH ×2 (09:22→18:07)
[2016-08-26] MEDS: HYDROCHLOROTHIAZIDE 25 MG TAB PO SCH (09:22)
[2016-08-26] MEDS: DOCUSATE SODIUM 100 MG CAP PO SCH ×2 (09:23→21:31)
[2016-08-26] MEDS: AMLODIPINE 10 MG TAB PO SCH (09:23)
[2016-08-26] MEDS: FERROUS SULFATE (EC) 325 MG TAB PO SCH ×3 (09:27→21:31)
--- NOTE | 2016-08-26 11:36 | PN ---
DATE: 08/26/2016 SUBJECTIVE: The patient is stable, no acute events overnight. No fevers, chills, nausea, vomiting. OBJECTIVE: VITAL SIGNS: Blood pressure is 151/55, respirations 20, temperature 98.2. HEENT: Head is normocephalic. NECK: Supple. HEART: Regular rate. LUNGS: Show diminished breath sounds at the bases. ABDOMEN: Soft, nontender to palpation. No rebound or guarding. EXTREMITIES: Negative for clubbing, cyanosis, edema on the left leg. Right leg has dressings clean , dry and intact. DERMATOLOGIC: No rashes. MUSCULOSKELETAL: No joint effusions. NEUROLOGIC: No change in exam. MEDICATIONS: The patient's medications have been reviewed. LABORATORY DATA: Shows sodium 140, potassium 4.4. chloride 98, BUN 30, creatinine 1.14, phosphorus 5.0. White count 12.4, hemoglobin 8.9, hematocrit 29.7, platelet count 291. ASSESSMENT AND PLAN: 1. Status post right knee replacement. The patient is currently stable. Continue PT, OT. 2. Anemia. Continue to monitor hemoglobin and hematocrit levels. The patient is status post blood transfusion. 3. Hypertension. Blood pressure remains elevated in part due to underlying pain. Continue current blood pressure regimen. Continue pain control. I will consider adjusting medications as needed. 4. Chronic kidney disease, stage III. Etiology is multifactorial. Renal function appears stable. Continue current treatment plan, supportive care, renally dose all meds. 5. Diabetes. Continue Accu-Cheks and insulin sliding scale. 6. Dyslipidemia. Continue statin therapy. 7. Leukopenia, mild. Continue to monitor. Possibly related to underlying anemia. 8. Gastrointestinal and deep venous thrombosis prophylaxis. Continue proton pump inhibitor and Xar elto. 9. General debility. Continue PT, OT. Dictated By: RUBY MARES/YUNIOR Conf#: [id number] DID#: [id number]
[2016-08-26 12:20] VITALS: BP 130/61; PULSE 62; RESP 18
[2016-08-26] MEDS: ATENOLOL 50 MG TAB PO SCH (12:22)
--- NOTE | 2016-08-26 13:24 | CONS ---
Date/Time of Note Date/Time of Note DATE: 08/26/16 TIME: 13:23 Consult Date/Type/Reason Admit Date/Time Aug 20, 2016 at 18:44 Subjective Reports upset stomach if she takes her pain meds without food Objective pulm- cta abd- soft min assist transfer and ambulation Vital Signs Date Time Temp Pulse Resp B/P Pulse Ox O2 Delivery O2 Flow Rate FiO2 08/26/16 12:20 62 18 130/61 96 Room Air 08/25/16 20:00 2.0 08/25/16 19:35 98.2 Intake and Output 08/25/16 08/25/16 08/26/16 15:00 23:00 07:00 Intake Total 700 ml 820 ml 480 ml Balance 700 ml 820 ml 480 ml Exam Rehab- Other orthopedic injury with patient status post right total knee replacement. Continue therapy program Acute pain syndrome. Status post acute respiratory failure. Diabetes mellitus. Hypertension. Gastroesophageal reflux disease. Results/Medications Result Diagram: 08/26/16 0556 08/26/16 0556 Results 24 hrs Laboratory Tests Test 08/26/16 05:56 White Blood Count 4.4 L Red Blood Count 3.82 L Hemoglobin 8.9 L Hematocrit 29.6 L Mean Corpuscular Volume 77.5 L Mean Corpuscular Hemoglobin 23.3 L Mean Corpuscular Hemoglobin Concent 30.1 L Red Cell Distribution Width 15.4 H Platelet Count 291 # Mean Platelet Volume 10.7 H Neutrophils % 43.3 Lymphocytes % 39.3 Monocytes % 11.6 H Eosinophils % 4.8 Basophils % 0.5 Nucleated Red Blood Cells % 0.0 Neutrophils # 1.9 Lymphocytes # 1.7 Monocytes # 0.5 Eosinophils # 0.2 Basophils # 0.0 Nucleated Red Blood Cells # 0.0 Sodium Level 140 Potassium Level 4.1 Chloride Level 98 Carbon Dioxide Level 32 H Anion Gap 14 Blood Urea Nitrogen 30 H Creatinine 1.14 H Glucose Level 95 Calcium Level 9.0 Phosphorus Level 5.0 H Magnesium Level 2.2 Medications Current Medications Acetaminophen (Tylenol Tab) 650 mg Q4H PRN PO HEADACHE OR TEMP > 101 Last administered on 08/23/16 21:40; Admin Dose 650 MG; Start 08/20/16 at 20:30 Amlodipine Besylate (Norvasc) 10 mg DAILY PO Last administered on 08/26/16 09: 23; Admin Dose 10 MG; Start 08/21/16 at 09:00 Atenolol (Tenormin) 50 mg DAILY PO Last administered on 08/26/16 12:22; Admin Dose 50 MG; Start 08/21/16 at 09:00 Gabapentin (Neurontin) 300 mg TID PO Last administered on 08/26/16 12:25; Admin Dose 300 MG; Start 08/20/16 at 21:00 Hydrochlorothiazide (Hydrochlorothiazide) 25 mg DAILY PO Last administered on 09:22; Admin Dose 25 MG; Start 08/21/16 at 09:00 Docusate Sodium (Colace) 100 mg BID PO Last administered on 08/26/16 09:23; Admin Dose 100 MG; Start 08/21/16 at 09:00 Senna (Senokot) 1 tab HS PO Last administered on 08/25/16 21:01; Admin Dose 1 TAB; Start 08/21/16 at 21:00 Acetaminophen (Tylenol Tab) 650 mg Q4H PRN PO PAIN Last administered on 04:21; Admin Dose 650 MG; Start 08/21/16 at 02:10 Bisacodyl (Dulcolax Supp) 10 mg DAILY PRN [place] CONSTIPATION; Start 08/21/16 at 02 :10 Magnesium Hydroxide (Milk Of Mag) 30 ml BID PRN PO CONSTIPATION; Start at 02:10 Lactulose (Enulose) 20 gm DAILY PRN PO CONSTIPATION; Start 08/21/16 at 02:10 Acetaminophen/ Hydrocodone Bitart ([place] (5/325)) 1 tab Q4H PRN PO MODERATE PAIN LEVEL 4-6 Last administered on 08/24/16 07:50; Admin Dose 1 TAB; Start at 08:30 Tramadol HCl (Ultram) 25 mg Q4H PRN PO PAIN LEVEL 1-5 Last administered on 08/22 20:58; Admin Dose 25 MG; Start 08/21/16 at 09:00 Miscellaneous Information 1 ea NOTE XX ; Start 08/21/16 at 09:00 Glucose (Glutose) 15 gm Q15M PRN PO DECREASED GLUCOSE; Start 08/21/16 at 09:00 Glucose (Glutose) 22.5 gm Q15M PRN PO DECREASED GLUCOSE; Start 08/21/16 at 09: 00 Dextrose (D50w Syringe) 25 ml Q15M PRN IV DECREASED GLUCOSE; Start 08/21/16 at 09:00 Dextrose (D50w Syringe) 50 ml Q15M PRN IV DECREASED GLUCOSE; Start 08/21/16 at 09:00 Glucagon (Glucagen) 1 mg Q15M PRN IM DECREASED GLUCOSE; Start 08/21/16 at 09:00 Glucose (Glutose) 15 gm Q15M PRN BUCCAL DECREASED GLUCOSE; Start 08/21/16 at 09 :00 Atorvastatin Calcium (Lipitor) 10 mg HS PO Last administered on 08/25/16 21:01 ; Admin Dose 10 MG; Start 08/21/16 at 21:00 Acetaminophen/ Hydrocodone Bitart ([place] (5/325)) 2 tab Q4H PRN PO PAIN LEVEL 6 -10 Last administered on 08/26/16 09:26; Admin Dose 2 TAB; Start 08/24/16 at 10 :00 Ferrous Sulfate (Ferrous Sulfate (Ec)) 325 mg TID PO Last administered on 12:25; Admin Dose 325 MG; Start 08/26/16 at 13:00 PIPER WAGONER MD Aug 26, 2016 13:24
[2016-08-26] MEDS: RIVAROXABAN 10 MG TABLET PO SCH (18:08)
[2016-08-26 20:00] VITALS: BP 153/70; RESP 20
[2016-08-26] MEDS: ATORVASTATIN 10 MG TAB PO SCH (21:31)
[2016-08-26] MEDS: SENNA TAB PO SCH (21:31)
--- NOTE | 2016-08-26 23:11 | CONS ---
Date/Time of Note Date/Time of Note DATE: 08/26/16 TIME: 23:06 Assessment/Plan Assessment/Plan Chief Complaint/Hosp Course ASSESSMENT AND PLAN: Anemia. - MICROCYTIC Continue to monitor hemoglobin and hematocrit levels. The patient is status post blood transfusion X 1 U ON 08.22.16 COMPLETE ANEMIA W -UP Leukopenia, mild. Continue to monitor. REVIEW OLD RECORD Status post right knee replacement. The patient is currently stable. Continue PT, OT. Hypertension. Blood pressure remains elevated in part due to underlying pain. Continue current blood pressure regimen. Continue pain control. Chronic kidney disease, stage III. Etiology is multifactorial. Renal function appears stable. Continue current treatment plan, supportive care, renally dose all meds. Dyslipidemia. Continue statin therapy. Gastrointestinal and deep venous thrombosis prophylaxis. Continue proton pump inhibitor and Xarelto. General debility. Continue PT, OT Problems: Consultation Date/Type/Reason Admit Date/Time Aug 20, 2016 at 18:44 Initial Consult Date Type of Consultation: HEMEON Reason for Consultation LEUKOPENIA Referring Provider: ALEKSANDR CREWS MD 24 HR Interval Summary Free Text/Dictation The patient is stable, no acute events overnight. No fevers, chills, nausea, vomiting. . Exam/Review of Systems Vital Signs Vitals Vital Signs Date Time Temp Pulse Resp B/P Pulse Ox O2 Delivery O2 Flow Rate FiO2 08/26/16 20:00 Nasal Cannula 2.0 08/26/16 12:20 62 18 130/61 96 08/26/16 07:30 98.6 Intake and Output 08/25/16 08/25/16 08/26/16 15:00 23:00 07:00 Intake Total 700 ml 820 ml 480 ml Balance 700 ml 820 ml 480 ml Exam OBJECTIVE: HEENT: Head is normocephalic. NECK: Supple. HEART: Regular rate. LUNGS: Show diminished breath sounds at the bases. ABDOMEN: Soft, nontender to palpation. No rebound or guarding. EXTREMITIES: Negative for clubbing, cyanosis, edema on the left leg. Right leg has dressings clean, dry and intact. DERMATOLOGIC: No rashes. MUSCULOSKELETAL: No joint effusions. NEUROLOGIC: No change in exam. MEDICATIONS: The patient's medications have been reviewed. Results Result Diagram: 08/26/16 0556 08/26/16 0556 Results 24 hrs Laboratory Tests Test 08/26/16 05:56 White Blood Count 4.4 L Red Blood Count 3.82 L Hemoglobin 8.9 L Hematocrit 29.6 L Mean Corpuscular Volume 77.5 L Mean Corpuscular Hemoglobin 23.3 L Mean Corpuscular Hemoglobin Concent 30.1 L Red Cell Distribution Width 15.4 H Platelet Count 291 # Mean Platelet Volume 10.7 H Neutrophils % 43.3 Lymphocytes % 39.3 Monocytes % 11.6 H Eosinophils % 4.8 Basophils % 0.5 Nucleated Red Blood Cells % 0.0 Neutrophils # 1.9 Lymphocytes # 1.7 Monocytes # 0.5 Eosinophils # 0.2 Basophils # 0.0 Nucleated Red Blood Cells # 0.0 Sodium Level 140 Potassium Level 4.1 Chloride Level 98 Carbon Dioxide Level 32 H Anion Gap 14 Blood Urea Nitrogen 30 H Creatinine 1.14 H Glucose Level 95 Calcium Level 9.0 Phosphorus Level 5.0 H Magnesium Level 2.2 Medications Medications Current Medications Acetaminophen (Tylenol Tab) 650 mg Q4H PRN PO HEADACHE OR TEMP > 101 Last administered on 08/23/16 21:40; Admin Dose 650 MG; Start 08/20/16 at 20:30 Amlodipine Besylate (Norvasc) 10 mg DAILY PO Last administered on 08/26/16 09: 23; Admin Dose 10 MG; Start 08/21/16 at 09:00 Atenolol (Tenormin) 50 mg DAILY PO Last administered on 08/26/16 12:22; Admin Dose 50 MG; Start 08/21/16 at 09:00 Gabapentin (Neurontin) 300 mg TID PO Last administered on 08/26/16 21:31; Admin Dose 300 MG; Start 08/20/16 at 21:00 Hydrochlorothiazide (Hydrochlorothiazide) 25 mg DAILY PO Last administered on 09:22; Admin Dose 25 MG; Start 08/21/16 at 09:00 Docusate Sodium (Colace) 100 mg BID PO Last administered on 08/26/16 21:31; Admin Dose 100 MG; Start 08/21/16 at 09:00 Senna (Senokot) 1 tab HS PO Last administered on 08/26/16 21:31; Admin Dose 1 TAB; Start 08/21/16 at 21:00 Acetaminophen (Tylenol Tab) 650 mg Q4H PRN PO PAIN Last administered on 04:21; Admin Dose 650 MG; Start 08/21/16 at 02:10 Bisacodyl (Dulcolax Supp) 10 mg DAILY PRN [place] CONSTIPATION; Start 08/21/16 at 02 :10 Magnesium Hydroxide (Milk Of Mag) 30 ml BID PRN PO CONSTIPATION; Start at 02:10 Lactulose (Enulose) 20 gm DAILY PRN PO CONSTIPATION; Start 08/21/16 at 02:10 Acetaminophen/ Hydrocodone Bitart ([place] (5/325)) 1 tab Q4H PRN PO MODERATE PAIN LEVEL 4-6 Last administered on 08/24/16 07:50; Admin Dose 1 TAB; Start at 08:30 Tramadol HCl (Ultram) 25 mg Q4H PRN PO PAIN LEVEL 1-5 Last administered on 08/22 20:58; Admin Dose 25 MG; Start 08/21/16 at 09:00 Miscellaneous Information 1 ea NOTE XX ; Start 08/21/16 at 09:00 Glucose (Glutose) 15 gm Q15M PRN PO DECREASED GLUCOSE; Start 08/21/16 at 09:00 Glucose (Glutose) 22.5 gm Q15M PRN PO DECREASED GLUCOSE; Start 08/21/16 at 09: 00 Dextrose (D50w Syringe) 25 ml Q15M PRN IV DECREASED GLUCOSE; Start 08/21/16 at 09:00 Dextrose (D50w Syringe) 50 ml Q15M PRN IV DECREASED GLUCOSE; Start 08/21/16 at 09:00 Glucagon (Glucagen) 1 mg Q15M PRN IM DECREASED GLUCOSE; Start 08/21/16 at 09:00 Glucose (Glutose) 15 gm Q15M PRN BUCCAL DECREASED GLUCOSE; Start 08/21/16 at 09 :00 Atorvastatin Calcium (Lipitor) 10 mg HS PO Last administered on 08/26/16 21:31 ; Admin Dose 10 MG; Start 08/21/16 at 21:00 Acetaminophen/ Hydrocodone Bitart ([place] (5/325)) 2 tab Q4H PRN PO PAIN LEVEL 6 -10 Last administered on 08/26/16 22:03; Admin Dose 2 TAB; Start 08/24/16 at 10 :00 Ferrous Sulfate (Ferrous Sulfate (Ec)) 325 mg TID PO Last administered on t 21:31; Admin Dose 325 MG; Start 08/26/16 at 13:00 NABIL MENDEZ MD Aug 26, 2016 23:11
[2016-08-27] MEDS: HYDROCODONE/APAP (5/325) TAB PO PRN ×5 (02:02→20:35)
[2016-08-27 07:14] LABS: ADD SCAN DIFF NO
[2016-08-27 07:21] LABS: BASOPHILS % 0.5 % (0.0-2.0); EOSINOPHILS # 0.2 10^3/ul (0.0-0.5); EOSINOPHILS % 3.9 % (0.0-7.0); HEMATOCRIT 29.7 % (37.0-47.0); LYMPHOCYTES # 1.5 10^3/ul (0.8-2.9); LYMPHOCYTES % 34.7 % (15.0-51.0); MEAN CORPUSCULAR HEMOGLOBIN 23.2 pg (29.0-33.0); MEAN CORPUSCULAR HGB CONC 30.3 g/dl (32.0-37.0); MEAN CORPUSCULAR VOLUME 76.5 fl (82.0-101.0); MEAN PLATELET VOLUME 10.8 fl (7.4-10.4); MONOCYTE # 0.4 10^3/ul (0.3-0.9); MONOCYTES % 9.2 % (0.0-11.0); NEUTROPHIL # 2.2 10^3/ul (1.6-7.5); PLATELET COUNT 333 10^3/UL (140-415); RED BLOOD COUNT 3.88 10^6/ul (4.20-5.40); RED CELL DISTRIBUTION WIDTH 15.4 % (11.5-14.5); WHITE BLOOD COUNT 4.4 10^3/ul (4.8-10.8)
[2016-08-27 07:34] LABS: IRON 29 ug/dl (35-150)
[2016-08-27 07:36] LABS: RETICULOCYTE COUNT % 1.7 % (0.5-1.5)
[2016-08-27 07:39] VITALS: BP 134/61; RESP 18
[2016-08-27 07:41] LABS: URIC ACID 6.7 mg/dl (3.1-7.9)
[2016-08-27 07:44] LABS: TOTAL IRON BINDING CAPACITY 260 ug/dl (241-421)
[2016-08-27 08:07] LABS: THYROID STIMULATING HORMONE 4.63 MIU/L (0.465-4.680)
[2016-08-27] MEDS: DOCUSATE SODIUM 100 MG CAP PO SCH ×2 (08:27→20:34)
[2016-08-27] MEDS: metFORMIN 500 MG TAB PO SCH ×2 (08:27→17:19)
[2016-08-27] MEDS: HYDROCHLOROTHIAZIDE 25 MG TAB PO SCH (08:28)
[2016-08-27] MEDS: AMLODIPINE 10 MG TAB PO SCH (08:28)
[2016-08-27] MEDS: GABAPENTIN 300 MG CAP PO SCH ×3 (08:28→20:34)
[2016-08-27] MEDS: FERROUS SULFATE (EC) 325 MG TAB PO SCH ×3 (08:28→20:34)
[2016-08-27 08:41] LABS: FOLATE 8.3 ng/ml (2.8-20.0)
[2016-08-27] MEDS: ATENOLOL 50 MG TAB PO SCH (09:00)
[2016-08-27 09:25] LABS: CARCINOEMBRYONIC ANTIGEN 0.7 ng/ml (0.0-5.0)
--- NOTE | 2016-08-27 10:43 | PN ---
DATE: 08/27/2016 This SUBJECTIVE: The patient is stable. No acute events overnight. No fevers, chills, nausea, vom iting. OBJECTIVE: VITAL SIGNS: Blood pressure is 134/64, respiration 18, pulse 56, temperature 98.4. HEENT: Head is normocephalic. NECK: Supple. HEART: Regular rate. LUNGS: Show diminished breath sounds at base. ABDOMEN: Soft, nontender to palpation without rebound or guarding. EXTREMITIES: Negative for clubbing, cyanosis, or edema on the left leg. Right knee still has dress ing clean, dry, and intact. DERMATOLOGIC: No rashes. MUSCULOSKELETAL: No joint effusions. NEUROLOGIC: No focal deficits. LABORATORY DATA: Shows white count 4.4, hemoglobin 9.0, hematocrit 29.7, platelet count is 333. ASSESSMENT AND PLAN: 1. Status post total right knee arthroplasty. The patient is currently stable. Continue PT, OT. 2. Anemia. Continue to monitor hemoglobin and hematocrit levels. The patient is status post blood transfusion. 3. Hypertension. Continue current blood pressure regimen. Adjust medications as needed. 4. Chronic kidney disease, stage III. Renal function stable. Continue current treatment plan, sup portive care, renally dose all meds, avoid nephrotoxins. 5. Diabetes. Continue Accu-Cheks, insulin sliding scale. 6. Dyslipidemia. Continue statin therapy. 7. Mild leukopenia. Continue to monitor. Follow up with hematology recommendations. 8. Gastrointestinal and deep venous thrombosis prophylaxis. Continue proton pump inhibitor, Xarelt o. 9. General debility. Continue PT, OT. Dictated By: RUBY MARES/YUNIOR Conf#: [id number] DID#: [id number]
--- NOTE | 2016-08-27 12:48 | CONS ---
Date/Time of Note Date/Time of Note DATE: 08/27/16 TIME: 12:48 Consult Date/Type/Reason Admit Date/Time Aug 20, 2016 at 18:44 Type of Consultation: HEMEON Ordering Provider: ALEKSANDR CREWS MD Subjective Comfortable Objective pulm-cta min assist Vital Signs Date Time Temp Pulse Resp B/P Pulse Ox O2 Delivery O2 Flow Rate FiO2 08/27/16 07:39 98.4 56 18 134/61 95 08/26/16 20:00 Nasal Cannula 2.0 Intake and Output 08/26/16 08/26/16 08/27/16 15:00 23:00 07:00 Intake Total 620 ml 400 ml Output Total 600 ml Balance 620 ml -200 ml Results/Medications Result Diagram: 08/27/16 0615 08/26/16 0556 Results 24 hrs Laboratory Tests Test 08/27/16 06:15 08/27/16 10:00 White Blood Count 4.4 L Red Blood Count 3.88 L Hemoglobin 9.0 L Hematocrit 29.7 L Mean Corpuscular Volume 76.5 L Mean Corpuscular Hemoglobin 23.2 L Mean Corpuscular Hemoglobin Concent 30.3 L Red Cell Distribution Width 15.4 H Platelet Count 333 Mean Platelet Volume 10.8 H Neutrophils % 51.0 Lymphocytes % 34.7 Monocytes % 9.2 Eosinophils % 3.9 Basophils % 0.5 Nucleated Red Blood Cells % 0.0 Neutrophils # 2.2 Lymphocytes # 1.5 Monocytes # 0.4 Eosinophils # 0.2 Basophils # 0.0 Nucleated Red Blood Cells # 0.0 Erythrocyte Sedimentation Rate 65 H Absolute Reticulocyte Count 0.064 Percent Reticulocyte Count 1.7 H Uric Acid 6.7 Iron Level 29 L Total Iron Binding Capacity 260 Percent Iron Saturation 11 L Ferritin 410.0 H Lactate Dehydrogenase 539 Carcinoembryonic Antigen 0.7 Vitamin B12 Level 356 Folate 8.3 Thyroid Stimulating Hormone (TSH) 4.630 Stool Occult Blood NEGATIVE Medications Current Medications Acetaminophen (Tylenol Tab) 650 mg Q4H PRN PO HEADACHE OR TEMP > 101 Last administered on 08/23/16 21:40; Admin Dose 650 MG; Start 08/20/16 at 20:30 Amlodipine Besylate (Norvasc) 10 mg DAILY PO Last administered on 08/27/16 08: 28; Admin Dose 10 MG; Start 08/21/16 at 09:00 Atenolol (Tenormin) 50 mg DAILY PO Last administered on 08/26/16 12:22; Admin Dose 50 MG; Start 08/21/16 at 09:00 Gabapentin (Neurontin) 300 mg TID PO Last administered on 08/27/16 12:43; Admin Dose 300 MG; Start 08/20/16 at 21:00 Hydrochlorothiazide (Hydrochlorothiazide) 25 mg DAILY PO Last administered on 08:28; Admin Dose 25 MG; Start 08/21/16 at 09:00 Docusate Sodium (Colace) 100 mg BID PO Last administered on 08/27/16 08:27; Admin Dose 100 MG; Start 08/21/16 at 09:00 Senna (Senokot) 1 tab HS PO Last administered on 08/26/16 21:31; Admin Dose 1 TAB; Start 08/21/16 at 21:00 Acetaminophen (Tylenol Tab) 650 mg Q4H PRN PO PAIN Last administered on 04:21; Admin Dose 650 MG; Start 08/21/16 at 02:10 Bisacodyl (Dulcolax Supp) 10 mg DAILY PRN [place] CONSTIPATION; Start 08/21/16 at 02 :10 Magnesium Hydroxide (Milk Of Mag) 30 ml BID PRN PO CONSTIPATION; Start at 02:10 Lactulose (Enulose) 20 gm DAILY PRN PO CONSTIPATION; Start 08/21/16 at 02:10 Acetaminophen/ Hydrocodone Bitart ([place] (5/325)) 1 tab Q4H PRN PO MODERATE PAIN LEVEL 4-6 Last administered on 08/24/16 07:50; Admin Dose 1 TAB; Start at 08:30 Tramadol HCl (Ultram) 25 mg Q4H PRN PO PAIN LEVEL 1-5 Last administered on 08/22 20:58; Admin Dose 25 MG; Start 08/21/16 at 09:00 Miscellaneous Information 1 ea NOTE XX ; Start 08/21/16 at 09:00 Glucose (Glutose) 15 gm Q15M PRN PO DECREASED GLUCOSE; Start 08/21/16 at 09:00 Glucose (Glutose) 22.5 gm Q15M PRN PO DECREASED GLUCOSE; Start 08/21/16 at 09: 00 Dextrose (D50w Syringe) 25 ml Q15M PRN IV DECREASED GLUCOSE; Start 08/21/16 at 09:00 Dextrose (D50w Syringe) 50 ml Q15M PRN IV DECREASED GLUCOSE; Start 08/21/16 at 09:00 Glucagon (Glucagen) 1 mg Q15M PRN IM DECREASED GLUCOSE; Start 08/21/16 at 09:00 Glucose (Glutose) 15 gm Q15M PRN BUCCAL DECREASED GLUCOSE; Start 08/21/16 at 09 :00 Atorvastatin Calcium (Lipitor) 10 mg HS PO Last administered on 08/26/16 21:31 ; Admin Dose 10 MG; Start 08/21/16 at 21:00 Acetaminophen/ Hydrocodone Bitart ([place] (5/325)) 2 tab Q4H PRN PO PAIN LEVEL 6 -10 Last administered on 08/27/16 11:00; Admin Dose 2 TAB; Start 08/24/16 at 10 :00 Ferrous Sulfate (Ferrous Sulfate (Ec)) 325 mg TID PO Last administered on 12:43; Admin Dose 325 MG; Start 08/26/16 at 13:00 Assessment/Plan Additional Assessment/Plan Rehab- Other orthopedic injury with patient status post right total knee replacement. Continue treatment plan Acute pain syndrome. Status post acute respiratory failure. Diabetes mellitus. Hypertension. Gastroesophageal reflux disease. PIPER WAGONER MD Aug 27, 2016 12:48
[2016-08-27] MEDS: RIVAROXABAN 10 MG TABLET PO SCH (17:19)
[2016-08-27 19:45] VITALS: BP 160/61; PULSE 74; RESP 18
[2016-08-27] MEDS: SENNA TAB PO SCH (20:34)
[2016-08-27] MEDS: ATORVASTATIN 10 MG TAB PO SCH (20:34)
--- NOTE | 2016-08-27 23:34 | CONS ---
Date/Time of Note Date/Time of Note DATE: 08/27/16 TIME: 23:34 Assessment/Plan Assessment/Plan Chief Complaint/Hosp Course ASSESSMENT AND PLAN: Anemia. - MICROCYTIC Continue to monitor hemoglobin and hematocrit levels. The patient is status post blood transfusion X 1 U ON 08.22.16 COMPLETE ANEMIA W -UP Leukopenia, mild. Continue to monitor. REVIEW OLD RECORD Status post right knee replacement. The patient is currently stable. Continue PT, OT. Hypertension. Blood pressure remains elevated in part due to underlying pain. Continue current blood pressure regimen. Continue pain control. Chronic kidney disease, stage III. Etiology is multifactorial. Renal function appears stable. Continue current treatment plan, supportive care, renally dose all meds. Dyslipidemia. Continue statin therapy. Gastrointestinal and deep venous thrombosis prophylaxis. Continue proton pump inhibitor and Xarelto. General debility. Continue PT, OT Problems: Consultation Date/Type/Reason Admit Date/Time Aug 20, 2016 at 18:44 [facility] Referring Provider: ALEKSANDR CREWS MD 24 HR Interval Summary Free Text/Dictation STABLE NO NEW EVENTS NO BLEEDING + MILD LEUKOPENIA, AFEBRILE Exam/Review of Systems Vital Signs Vitals Vital Signs Date Time Temp Pulse Resp B/P Pulse Ox O2 Delivery O2 Flow Rate FiO2 08/27/16 07:39 98.4 56 18 134/61 95 08/26/16 20:00 Nasal Cannula 2.0 Intake and Output 08/26/16 08/26/16 08/27/16 15:00 23:00 07:00 Intake Total 620 ml 400 ml Output Total 600 ml Balance 620 ml -200 ml Exam HEENT: Head is normocephalic. NECK: Supple. HEART: Regular rate. LUNGS: Show diminished breath sounds at the bases. ABDOMEN: Soft, nontender to palpation. No rebound or guarding. EXTREMITIES: Negative for clubbing, cyanosis, edema on the left leg. Right leg has dressings clean, dry and intact. DERMATOLOGIC: No rashes. MUSCULOSKELETAL: No joint effusions. NEUROLOGIC: No change in exam. Results Result Diagram: 08/27/16 0615 08/26/16 0556 Results 24 hrs Laboratory Tests Test 08/27/16 06:15 08/27/16 10:00 White Blood Count 4.4 L Red Blood Count 3.88 L Hemoglobin 9.0 L Hematocrit 29.7 L Mean Corpuscular Volume 76.5 L Mean Corpuscular Hemoglobin 23.2 L Mean Corpuscular Hemoglobin Concent 30.3 L Red Cell Distribution Width 15.4 H Platelet Count 333 Mean Platelet Volume 10.8 H Neutrophils % 51.0 Lymphocytes % 34.7 Monocytes % 9.2 Eosinophils % 3.9 Basophils % 0.5 Nucleated Red Blood Cells % 0.0 Neutrophils # 2.2 Lymphocytes # 1.5 Monocytes # 0.4 Eosinophils # 0.2 Basophils # 0.0 Nucleated Red Blood Cells # 0.0 Erythrocyte Sedimentation Rate 65 H Absolute Reticulocyte Count 0.064 Percent Reticulocyte Count 1.7 H Uric Acid 6.7 Iron Level 29 L Total Iron Binding Capacity 260 Percent Iron Saturation 11 L Ferritin 410.0 H Lactate Dehydrogenase 539 Carcinoembryonic Antigen 0.7 Vitamin B12 Level 356 Folate 8.3 Thyroid Stimulating Hormone (TSH) 4.630 Stool Occult Blood NEGATIVE Medications Medications Current Medications Acetaminophen (Tylenol Tab) 650 mg Q4H PRN PO HEADACHE OR TEMP > 101 Last administered on 08/23/16 21:40; Admin Dose 650 MG; Start 08/20/16 at 20:30 Amlodipine Besylate (Norvasc) 10 mg DAILY PO Last administered on 08/27/16 08: 28; Admin Dose 10 MG; Start 08/21/16 at 09:00 Atenolol (Tenormin) 50 mg DAILY PO Last administered on 08/26/16 12:22; Admin Dose 50 MG; Start 08/21/16 at 09:00 Gabapentin (Neurontin) 300 mg TID PO Last administered on 08/27/16 20:34; Admin Dose 300 MG; Start 08/20/16 at 21:00 Hydrochlorothiazide (Hydrochlorothiazide) 25 mg DAILY PO Last administered on 08:28; Admin Dose 25 MG; Start 08/21/16 at 09:00 Docusate Sodium (Colace) 100 mg BID PO Last administered on 08/27/16 20:34; Admin Dose 100 MG; Start 08/21/16 at 09:00 Senna (Senokot) 1 tab HS PO Last administered on 08/27/16 20:34; Admin Dose 1 TAB; Start 08/21/16 at 21:00 Acetaminophen (Tylenol Tab) 650 mg Q4H PRN PO PAIN Last administered on 04:21; Admin Dose 650 MG; Start 08/21/16 at 02:10 Bisacodyl (Dulcolax Supp) 10 mg DAILY PRN [place] CONSTIPATION; Start 08/21/16 at 02 :10 Magnesium Hydroxide (Milk Of Mag) 30 ml BID PRN PO CONSTIPATION; Start at 02:10 Lactulose (Enulose) 20 gm DAILY PRN PO CONSTIPATION; Start 08/21/16 at 02:10 Acetaminophen/ Hydrocodone Bitart ([place] (5/325)) 1 tab Q4H PRN PO MODERATE PAIN LEVEL 4-6 Last administered on 08/24/16 07:50; Admin Dose 1 TAB; Start at 08:30 Tramadol HCl (Ultram) 25 mg Q4H PRN PO PAIN LEVEL 1-5 Last administered on 08/22 20:58; Admin Dose 25 MG; Start 08/21/16 at 09:00 Miscellaneous Information 1 ea NOTE XX ; Start 08/21/16 at 09:00 Glucose (Glutose) 15 gm Q15M PRN PO DECREASED GLUCOSE; Start 08/21/16 at 09:00 Glucose (Glutose) 22.5 gm Q15M PRN PO DECREASED GLUCOSE; Start 08/21/16 at 09: 00 Dextrose (D50w Syringe) 25 ml Q15M PRN IV DECREASED GLUCOSE; Start 08/21/16 at 09:00 Dextrose (D50w Syringe) 50 ml Q15M PRN IV DECREASED GLUCOSE; Start 08/21/16 at 09:00 Glucagon (Glucagen) 1 mg Q15M PRN IM DECREASED GLUCOSE; Start 08/21/16 at 09:00 Glucose (Glutose) 15 gm Q15M PRN BUCCAL DECREASED GLUCOSE; Start 08/21/16 at 09 :00 Atorvastatin Calcium (Lipitor) 10 mg HS PO Last administered on 08/27/16 20:34 ; Admin Dose 10 MG; Start 08/21/16 at 21:00 Acetaminophen/ Hydrocodone Bitart ([place] (5/325)) 2 tab Q4H PRN PO PAIN LEVEL 6 -10 Last administered on 08/27/16 20:35; Admin Dose 2 TAB; Start 08/24/16 at 10 :00 Ferrous Sulfate (Ferrous Sulfate (Ec)) 325 mg TID PO Last administered on t 20:34; Admin Dose 325 MG; Start 08/26/16 at 13:00 NABIL MENDEZ MD Aug 27, 2016 23:34
[2016-08-28] MEDS: HYDROCODONE/APAP (5/325) TAB PO PRN ×4 (05:38→21:52)
[2016-08-28] MEDS: FERROUS SULFATE (EC) 325 MG TAB PO SCH ×3 (08:45→21:01)
[2016-08-28] MEDS: metFORMIN 500 MG TAB PO SCH ×2 (08:45→17:41)
[2016-08-28] MEDS: AMLODIPINE 10 MG TAB PO SCH (08:45)
[2016-08-28] MEDS: GABAPENTIN 300 MG CAP PO SCH ×3 (08:46→21:01)
[2016-08-28] MEDS: DOCUSATE SODIUM 100 MG CAP PO SCH ×2 (08:46→21:01)
[2016-08-28] MEDS: ATENOLOL 50 MG TAB PO SCH (08:46)
[2016-08-28] MEDS: HYDROCHLOROTHIAZIDE 25 MG TAB PO SCH (08:46)
--- NOTE | 2016-08-28 10:28 | PN ---
DATE: 08/28/2016 SUBJECTIVE: The patient is stable, no acute events overnight. No fevers, chills, nausea, vomiting. OBJECTIVE: VITAL SIGNS: Blood pressure 160/61, respirations 18, pulse 74, temperature 97.4. HEENT: Head is normocephalic. NECK: Supple. HEART: Regular rate. LUNGS: Show diminished breath sounds at the bases. ABDOMEN: Soft, nontender to palpation. No rebound or guarding. EXTREMITIES: Negative for clubbing, cyanosis or edema on the left leg. Right knee still in a dress ing clean, dry, intact. DERMATOLOGIC: No rashes. MUSCULOSKELETAL: No joint effusions. NEUROLOGIC: No change in exam. MEDICATIONS: The patient's medications have been reviewed. LABORATORY DATA: Has been reviewed. No new labs. ASSESSMENT AND PLAN: 1. Status post total right knee arthroplasty. The patient is currently stable. Continue PT, OT. 2. Anemia. The patient's hemoglobin has been stable. Continue to monitor. Follow up with hematol ogrosanna. 3. Hypertension. Continue current blood pressure regimen, adjust as needed. 4. Chronic kidney disease, stage III. Renal function is stable. Continue current treatment plan, supportive care, renally dose all meds. 5. Diabetes. Continue Accu-Cheks and insulin sliding scale. 6. Dyslipidemia. Continue statin therapy. 7. Leukopenia. Continue to monitor. 8. Gastrointestinal and deep venous thrombosis prophylaxis. Continue proton pump inhibitor and Xar elto. 9. General debility. Continue PT, OT. Dictated By: RUBY MARES/YUNIOR Conf#: [id number] DID#: [id number]
--- NOTE | 2016-08-28 12:02 | PN ---
Date/Time of Note Date/Time of Note DATE: 08/28/16 TIME: 11:57 Assessment/Plan VTE Prophylaxis VTE Prophylaxis Intervention: other (xarelto) Lines/Catheters IV Catheter Type (from Nrsg): Saline Lock Urinary Cath still in place: No Assessment/Plan Assessment/Plan 1. Status post right total knee replacement with impaired mobility/gait/ADLs. Continue PT/OT. Transfers improving now SBA, gait improving now CGA 120ft with FWW. 2. Acute postop pain syndrome. Pain controlled, continue prn tramadol and norco for breakthrough pain. 3.Diabetes mellitus. On metformin and insulin sliding scale. Continue to monitor blood sugars, internal medicine managing. 4. Hypertension. Continue to monitor BP, intermittently elevated. Internal medicine managing. 5. Anemia. Continue to monitor hemoglobin/hematocrit. Stable on last labs. Hematology following. 6. Leukopenia. Stable on last labs. Continue to monitor, internal medicine following. 7. Chronic kidney disease. Continue to monitor renal function. Subjective 24 Hr Interval Summary Free Text/Dictation Rehab progress note Subjective: Reports right knee pain overall improving, currently mild pain. ROS: Denies headache, no dizziness, no chills, no shortness of breath,no chest pain, no abdominal pain, no constipation. Exam/Review of Systems Vital Signs Vitals Vital Signs Date Time Temp Pulse Resp B/P Pulse Ox O2 Delivery O2 Flow Rate FiO2 08/27/16 19:45 97.6 74 18 160/61 97 Room Air 08/26/16 20:00 2.0 Intake and Output 08/27/16 08/27/16 08/28/16 15:00 23:00 07:00 Intake Total 480 ml 240 ml 850 ml Balance 480 ml 240 ml 850 ml Exam General: Awake, alert, no acute distress CV: Regular rate, s1s2 Lungs clear to auscultation anteriorly, no wheezing Abdomen soft, nontender, bowel sounds present Extremities without cyanosis, right knee surgical site with dressing in place, clean and dry, knee immobilizer in place Neuro: No new sensory changes. R DF/PF intact. Results Result Diagram: 08/27/16 0615 08/26/16 0556 Medications Medications Current Medications Acetaminophen (Tylenol Tab) 650 mg Q4H PRN PO HEADACHE OR TEMP > 101 Last administered on 08/23/16t 21:40; Admin Dose 650 MG; Start 08/20/16 at 20:30 Amlodipine Besylate (Norvasc) 10 mg DAILY PO Last administered on 08/28/16 08: 45; Admin Dose 10 MG; Start 08/21/16 at 09:00 Atenolol (Tenormin) 50 mg DAILY PO Last administered on 08/28/16 08:46; Admin Dose 50 MG; Start 08/21/16 at 09:00 Gabapentin (Neurontin) 300 mg TID PO Last administered on 08/28/16 08:46; Admin Dose 300 MG; Start 08/20/16 at 21:00 Hydrochlorothiazide (Hydrochlorothiazide) 25 mg DAILY PO Last administered on 08:46; Admin Dose 25 MG; Start 08/21/16 at 09:00 Docusate Sodium (Colace) 100 mg BID PO Last administered on 08/28/16 08:46; Admin Dose 100 MG; Start 08/21/16 at 09:00 Senna (Senokot) 1 tab HS PO Last administered on 08/27/16 20:34; Admin Dose 1 TAB; Start 08/21/16 at 21:00 Acetaminophen (Tylenol Tab) 650 mg Q4H PRN PO PAIN Last administered on 04:21; Admin Dose 650 MG; Start 08/21/16 at 02:10 Bisacodyl (Dulcolax Supp) 10 mg DAILY PRN [place] CONSTIPATION; Start 08/21/16 at 02 :10 Magnesium Hydroxide (Milk Of Mag) 30 ml BID PRN PO CONSTIPATION; Start at 02:10 Lactulose (Enulose) 20 gm DAILY PRN PO CONSTIPATION; Start 08/21/16 at 02:10 Acetaminophen/ Hydrocodone Bitart ([place] (5/325)) 1 tab Q4H PRN PO MODERATE PAIN LEVEL 4-6 Last administered on 08/24/16 07:50; Admin Dose 1 TAB; Start at 08:30 Tramadol HCl (Ultram) 25 mg Q4H PRN PO PAIN LEVEL 1-5 Last administered on 08/22 20:58; Admin Dose 25 MG; Start 08/21/16 at 09:00 Miscellaneous Information 1 ea NOTE XX ; Start 08/21/16 at 09:00 Glucose (Glutose) 15 gm Q15M PRN PO DECREASED GLUCOSE; Start 08/21/16 at 09:00 Glucose (Glutose) 22.5 gm Q15M PRN PO DECREASED GLUCOSE; Start 08/21/16 at 09: 00 Dextrose (D50w Syringe) 25 ml Q15M PRN IV DECREASED GLUCOSE; Start 08/21/16 at 09:00 Dextrose (D50w Syringe) 50 ml Q15M PRN IV DECREASED GLUCOSE; Start 08/21/16 at 09:00 Glucagon (Glucagen) 1 mg Q15M PRN IM DECREASED GLUCOSE; Start 08/21/16 at 09:00 Glucose (Glutose) 15 gm Q15M PRN BUCCAL DECREASED GLUCOSE; Start 08/21/16 at 09 :00 Atorvastatin Calcium (Lipitor) 10 mg HS PO Last administered on 08/27/16 20:34 ; Admin Dose 10 MG; Start 08/21/16 at 21:00 Acetaminophen/ Hydrocodone Bitart ([place] (5/325)) 2 tab Q4H PRN PO PAIN LEVEL 6 -10 Last administered on 08/28/16 05:38; Admin Dose 2 TAB; Start 08/24/16 at 10 :00 Ferrous Sulfate (Ferrous Sulfate (Ec)) 325 mg TID PO Last administered on 08:45; Admin Dose 325 MG; Start 08/26/16 at 13:00 CLEM VILLALPANDO 25, 2017 12:02
[2016-08-28] MEDS: RIVAROXABAN 10 MG TABLET PO SCH (17:41)
[2016-08-28 19:56] VITALS: BP 138/64; RESP 18
[2016-08-28] MEDS: SENNA TAB PO SCH (21:01)
[2016-08-28] MEDS: ATORVASTATIN 10 MG TAB PO SCH (21:01)
--- NOTE | 2016-08-28 22:46 | CONS ---
Date/Time of Note Date/Time of Note DATE: 08/28/16 TIME: 22:44 Assessment/Plan Assessment/Plan Chief Complaint/Hosp Course ASSESSMENT AND PLAN: Anemia. - MICROCYTIC Continue to monitor hemoglobin and hematocrit levels. 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 Continue to monitor. REVIEW OLD RECORD Status post right knee replacement. The patient is currently stable. Continue PT, OT. Hypertension. Blood pressure remains elevated in part due to underlying pain. Continue current blood pressure regimen. Continue pain control. Chronic kidney disease, stage III. Etiology is multifactorial. Renal function appears stable. Continue current treatment plan, supportive care, renally dose all meds. Dyslipidemia. Continue statin therapy. Gastrointestinal and deep venous thrombosis prophylaxis. Continue proton pump inhibitor and Xarelto. General debility. Continue PT, OT Problems: Consultation Date/Type/Reason Admit Date/Time Aug 20, 2016 at 18:44 [facility] Referring Provider: ALEKSANDR CREWS MD 24 HR Interval Summary Free Text/Dictation The patient is stable, no acute events overnight. No fevers, chills, nausea, vomiting. COUNT STABLE NO BLEEDING Exam/Review of Systems Vital Signs Vitals Vital Signs Date Time Temp Pulse Resp B/P Pulse Ox O2 Delivery O2 Flow Rate FiO2 08/28/16 19:56 98.6 61 18 138/64 97 08/27/16 19:45 Room Air 08/26/16 20:00 2.0 Intake and Output 08/27/16 08/27/16 08/28/16 15:00 23:00 07:00 Intake Total 480 ml 240 ml 850 ml Balance 480 ml 240 ml 850 ml Exam OBJECTIVE: HEENT: Head is normocephalic. NECK: Supple. HEART: Regular rate. LUNGS: Show diminished breath sounds at the bases. ABDOMEN: Soft, nontender to palpation. No rebound or guarding. EXTREMITIES: Negative for clubbing, cyanosis or edema on the left leg. Right knee still in a dressing clean, dry, intact. DERMATOLOGIC: No rashes. MUSCULOSKELETAL: No joint effusions. NEUROLOGIC: No change in exam. Results Result Diagram: 08/27/16 0615 08/26/16 0556 Medications Medications Current Medications Acetaminophen (Tylenol Tab) 650 mg Q4H PRN PO HEADACHE OR TEMP > 101 Last administered on 08/23/16 21:40; Admin Dose 650 MG; Start 08/20/16 at 20:30 Amlodipine Besylate (Norvasc) 10 mg DAILY PO Last administered on 08/28/16 08: 45; Admin Dose 10 MG; Start 08/21/16 at 09:00 Atenolol (Tenormin) 50 mg DAILY PO Last administered on 08/28/16 08:46; Admin Dose 50 MG; Start 08/21/16 at 09:00 Gabapentin (Neurontin) 300 mg TID PO Last administered on 08/28/16 21:01; Admin Dose 300 MG; Start 08/20/16 at 21:00 Hydrochlorothiazide (Hydrochlorothiazide) 25 mg DAILY PO Last administered on 08:46; Admin Dose 25 MG; Start 08/21/16 at 09:00 Docusate Sodium (Colace) 100 mg BID PO Last administered on 08/28/16 21:01; Admin Dose 100 MG; Start 08/21/16 at 09:00 Senna (Senokot) 1 tab HS PO Last administered on 08/28/16 21:01; Admin Dose 1 TAB; Start 08/21/16 at 21:00 Acetaminophen (Tylenol Tab) 650 mg Q4H PRN PO PAIN Last administered on 04:21; Admin Dose 650 MG; Start 08/21/16 at 02:10 Bisacodyl (Dulcolax Supp) 10 mg DAILY PRN [place] CONSTIPATION; Start 08/21/16 at 02 :10 Magnesium Hydroxide (Milk Of Mag) 30 ml BID PRN PO CONSTIPATION; Start at 02:10 Lactulose (Enulose) 20 gm DAILY PRN PO CONSTIPATION; Start 08/21/16 at 02:10 Acetaminophen/ Hydrocodone Bitart ([place] (5/325)) 1 tab Q4H PRN PO MODERATE PAIN LEVEL 4-6 Last administered on 08/24/16 07:50; Admin Dose 1 TAB; Start at 08:30 Tramadol HCl (Ultram) 25 mg Q4H PRN PO PAIN LEVEL 1-5 Last administered on 08/22 20:58; Admin Dose 25 MG; Start 3/18/17 at 09:00 Miscellaneous Information 1 ea NOTE XX ; Start 08/21/16 at 09:00 Glucose (Glutose) 15 gm Q15M PRN PO DECREASED GLUCOSE; Start 08/21/16 at 09:00 Glucose (Glutose) 22.5 gm Q15M PRN PO DECREASED GLUCOSE; Start 08/21/16 at 09: 00 Dextrose (D50w Syringe) 25 ml Q15M PRN IV DECREASED GLUCOSE; Start 08/21/16 at 09:00 Dextrose (D50w Syringe) 50 ml Q15M PRN IV DECREASED GLUCOSE; Start 08/21/16 at 09:00 Glucagon (Glucagen) 1 mg Q15M PRN IM DECREASED GLUCOSE; Start 08/21/16 at 09:00 Glucose (Glutose) 15 gm Q15M PRN BUCCAL DECREASED GLUCOSE; Start 08/21/16 at 09 :00 Atorvastatin Calcium (Lipitor) 10 mg HS PO Last administered on 08/28/16 21:01 ; Admin Dose 10 MG; Start 08/21/16 at 21:00 Acetaminophen/ Hydrocodone Bitart ([place] (5/325)) 2 tab Q4H PRN PO PAIN LEVEL 6 -10 Last administered on 08/28/16 21:52; Admin Dose 2 TAB; Start 08/24/16 at 10 :00 Ferrous Sulfate (Ferrous Sulfate (Ec)) 325 mg TID PO Last administered on 21:01; Admin Dose 325 MG; Start 08/26/16 at 13:00 NABIL MENDEZ MD Aug 28, 2016 22:46
[2016-08-29] MEDS: HYDROCODONE/APAP (5/325) TAB PO PRN ×4 (02:17→21:12)
[2016-08-29 07:33] VITALS: BP 176/73; RESP 18
[2016-08-29] MEDS: metFORMIN 500 MG TAB PO SCH ×2 (08:44→17:22)
[2016-08-29] MEDS: DOCUSATE SODIUM 100 MG CAP PO SCH ×2 (08:44→21:10)
[2016-08-29] MEDS: GABAPENTIN 300 MG CAP PO SCH ×3 (08:44→21:10)
[2016-08-29] MEDS: FERROUS SULFATE (EC) 325 MG TAB PO SCH ×3 (08:45→21:10)
[2016-08-29] MEDS: ATENOLOL 50 MG TAB PO SCH (08:45)
[2016-08-29] MEDS: HYDROCHLOROTHIAZIDE 25 MG TAB PO SCH (08:45)
[2016-08-29] MEDS: AMLODIPINE 10 MG TAB PO SCH (08:46)
--- NOTE | 2016-08-29 10:07 | PN ---
DATE: SUBJECTIVE: The patient is stable, no acute events overnight. No fevers, chills, nausea, vomiting. OBJECTIVE: VITAL SIGNS: Blood pressure is 176/73, respiration 18, pulse 53, temperature 97.9. HEENT: Head is normocephalic. NECK: Supple. HEART: Regular rate. LUNGS: Show diminished breath sounds at the base. ABDOMEN: Soft, nontender to palpation. No rebound or guarding. EXTREMITIES: Negative for clubbing, cyanosis; no edema. DERMATOLOGIC: No rashes. MUSCULOSKELETAL: No joint effusion. NEUROLOGIC: No change in exam. MEDICATIONS: The patient's medications have been reviewed. LABORATORY DATA: Has been reviewed. ASSESSMENT AND PLAN: 1. Status post right knee arthroplasty. The patient's hematocrit is stable. Continue PT, OT. 2. Anemia. Continue to monitor H and H levels. Follow up with hematology. 3. Hypertension. Continue current blood pressure regimen. 4. Chronic kidney disease, stage III. Renal function stable. Continue current treatment plans for care, low dose Lasix. 5. Diabetes. Continue Accu-Cheks, insulin sliding scale. 6. Dyslipidemia. Continue statin therapy. 7. Leukopenia. Continue to monitor. 8. Gastrointestinal and deep venous thrombosis prophylaxis. Continue proton pump inhibitor and Xar elto. 9. General debility. Continue PT, OT. Dictated By: RUBY MARES/YUNIOR Conf#: [id number] DID#: [id number]
--- NOTE | 2016-08-29 10:39 | PN ---
Date/Time of Note Date/Time of Note DATE: 08/29/16 TIME: 10:37 Assessment/Plan VTE Prophylaxis VTE Prophylaxis Intervention: other (xarelto) Lines/Catheters IV Catheter Type (from Nrsg): Saline Lock Urinary Cath still in place: No Assessment/Plan Assessment/Plan 1. Status post right total knee replacement with impaired mobility/gait/ADLs. Continue PT/OT. Standing balance fair/fair minus, continue to work on improving gait and standing balance to decrease fall risk. 2. Acute postoperative pain syndrome. Pain controlled, continue current pain regimen. 3.Diabetes mellitus. Continue to monitor blood sugars, on metformin and insulin sliding scale per internal medicine. 4. Hypertension. Continue to monitor BP. Internal medicine managing. 5. Anemia. Stable. Continue to monitor. Hematology following. 6. Leukopenia. Stable. Continue to monitor, hematology following. 7. Chronic kidney disease. Continue to monitor renal function. Avoid nephrotoxic agents. Subjective 24 Hr Interval Summary Free Text/Dictation Rehab progress note Subjective: Reports 8/10 pain in right knee earlier, improved after receiving norco. ROS: Denies chest pain, no shortness of breath, no abdominal pain, no vomiting, no constipation. No headache or dizziness. Exam/Review of Systems Vital Signs Vitals Vital Signs Date Time Temp Pulse Resp B/P Pulse Ox O2 Delivery O2 Flow Rate FiO2 08/29/16 07:33 97.9 53 18 176/73 98 08/27/16 19:45 Room Air 08/26/16 20:00 2.0 Intake and Output 08/28/16 08/28/16 08/29/16 15:00 23:00 07:00 Intake Total 900 ml Output Total 300 ml 400 ml Balance -300 ml 500 ml Exam General: Laying in bed, awake, alert, no acute distress CV: Regular rate, s1s2 audible Lungs: Symmetrical air entry bilaterally, no crackles or wheezing Abdomen soft, nontender, bowel sounds present Extremities without cyanosis, right knee surgical site with dressing in place, clean and dry Neuro: No new focal changes. Antigravity strength BUE. Wiggles all toes on the right. Results Result Diagram: 08/27/16 0615 08/26/16 0556 Medications Medications Current Medications Acetaminophen (Tylenol Tab) 650 mg Q4H PRN PO HEADACHE OR TEMP > 101 Last administered on 08/23/16t 21:40; Admin Dose 650 MG; Start 08/20/16 at 20:30 Amlodipine Besylate (Norvasc) 10 mg DAILY PO Last administered on 08/29/16 08: 46; Admin Dose 10 MG; Start 08/21/16 at 09:00 Atenolol (Tenormin) 50 mg DAILY PO Last administered on 08/29/16 08:45; Admin Dose 50 MG; Start 08/21/16 at 09:00 Gabapentin (Neurontin) 300 mg TID PO Last administered on 08/29/16 08:44; Admin Dose 300 MG; Start 08/20/16 at 21:00 Hydrochlorothiazide (Hydrochlorothiazide) 25 mg DAILY PO Last administered on 08:45; Admin Dose 25 MG; Start 08/21/16 at 09:00 Docusate Sodium (Colace) 100 mg BID PO Last administered on 08/29/16 08:44; Admin Dose 100 MG; Start 08/21/16 at 09:00 Senna (Senokot) 1 tab HS PO Last administered on 08/28/16 21:01; Admin Dose 1 TAB; Start 08/21/16 at 21:00 Acetaminophen (Tylenol Tab) 650 mg Q4H PRN PO PAIN Last administered on 04:21; Admin Dose 650 MG; Start 08/21/16 at 02:10 Bisacodyl (Dulcolax Supp) 10 mg DAILY PRN [place] CONSTIPATION; Start 08/21/16 at 02 :10 Magnesium Hydroxide (Milk Of Mag) 30 ml BID PRN PO CONSTIPATION; Start at 02:10 Lactulose (Enulose) 20 gm DAILY PRN PO CONSTIPATION; Start 08/21/16 at 02:10 Acetaminophen/ Hydrocodone Bitart ([place] (5/325)) 1 tab Q4H PRN PO MODERATE PAIN LEVEL 4-6 Last administered on 08/24/16 07:50; Admin Dose 1 TAB; Start at 08:30 Tramadol HCl (Ultram) 25 mg Q4H PRN PO PAIN LEVEL 1-5 Last administered on 08/22 20:58; Admin Dose 25 MG; Start 08/21/16 at 09:00 Miscellaneous Information 1 ea NOTE XX ; Start 08/21/16 at 09:00 Glucose (Glutose) 15 gm Q15M PRN PO DECREASED GLUCOSE; Start 08/21/16 at 09:00 Glucose (Glutose) 22.5 gm Q15M PRN PO DECREASED GLUCOSE; Start 08/21/16 at 09: 00 Dextrose (D50w Syringe) 25 ml Q15M PRN IV DECREASED GLUCOSE; Start 08/21/16 at 09:00 Dextrose (D50w Syringe) 50 ml Q15M PRN IV DECREASED GLUCOSE; Start 08/21/16 at 09:00 Glucagon (Glucagen) 1 mg Q15M PRN IM DECREASED GLUCOSE; Start 08/21/16 at 09:00 Glucose (Glutose) 15 gm Q15M PRN BUCCAL DECREASED GLUCOSE; Start 08/21/16 at 09 :00 Atorvastatin Calcium (Lipitor) 10 mg HS PO Last administered on 08/28/16 21:01 ; Admin Dose 10 MG; Start 08/21/16 at 21:00 Acetaminophen/ Hydrocodone Bitart ([place] (5/325)) 2 tab Q4H PRN PO PAIN LEVEL 6 -10 Last administered on 08/29/16 08:45; Admin Dose 2 TAB; Start 08/24/16 at 10 :00 Ferrous Sulfate (Ferrous Sulfate (Ec)) 325 mg TID PO Last administered on 08:45; Admin Dose 325 MG; Start 08/26/16 at 13:00 CLEM VILLALPANDO Aug 29, 2016 10:39
[2016-08-29] MEDS: RIVAROXABAN 10 MG TABLET PO SCH (17:22)
[2016-08-29 20:28] VITALS: BP 136/60; RESP 18
[2016-08-29] MEDS: ATORVASTATIN 10 MG TAB PO SCH (21:10)
[2016-08-29] MEDS: SENNA TAB PO SCH (21:10)
--- NOTE | 2016-08-29 22:22 | CONS ---
Date/Time of Note Date/Time of Note DATE: 08/29/16 TIME: 22:21 Assessment/Plan Assessment/Plan Chief Complaint/Hosp Course ASSESSMENT AND PLAN: Anemia. - MICROCYTIC Continue to monitor hemoglobin and hematocrit levels. 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 Continue to monitor. REVIEW OLD RECORD Status post right knee replacement. The patient is currently stable. Continue PT, OT. Hypertension. Blood pressure remains elevated in part due to underlying pain. Continue current blood pressure regimen. Continue pain control. Chronic kidney disease, stage III. Etiology is multifactorial. Renal function appears stable. Continue current treatment plan, supportive care, renally dose all meds. Dyslipidemia. Continue statin therapy. Gastrointestinal and deep venous thrombosis prophylaxis. Continue proton pump inhibitor and Xarelto. General debility. Continue PT, OT Problems: Consultation Date/Type/Reason Admit Date/Time Aug 20, 2016 at 18:44 [facility] Referring Provider: ALEKSANDR CREWS MD 24 HR Interval Summary Free Text/Dictation The patient is stable, no acute events overnight. No fevers, chills, nausea, vomiting. COUNT STABLE NO BLEEDING Exam/Review of Systems Vital Signs Vitals Vital Signs Date Time Temp Pulse Resp B/P Pulse Ox O2 Delivery O2 Flow Rate FiO2 08/29/16 20:28 97.7 56 18 136/60 97 08/27/16 19:45 Room Air 08/26/16 20:00 2.0 Intake and Output 08/28/16 08/28/16 08/29/16 14:59 22:59 06:59 Intake Total 900 ml Output Total 300 ml 400 ml Balance -300 ml 500 ml Exam Exam OBJECTIVE: HEENT: Head is normocephalic. NECK: Supple. HEART: Regular rate. LUNGS: Show diminished breath sounds at the bases. ABDOMEN: Soft, nontender to palpation. No rebound or guarding. EXTREMITIES: Negative for clubbing, cyanosis or edema on the left leg. Right knee still in a dressing clean, dry, intact. DERMATOLOGIC: No rashes. MUSCULOSKELETAL: No joint effusions. NEUROLOGIC: No change in exam. Results Result Diagram: 08/27/16 0615 08/26/16 0556 Medications Medications Current Medications Acetaminophen (Tylenol Tab) 650 mg Q4H PRN PO HEADACHE OR TEMP > 101 Last administered on 08/23/16 21:40; Admin Dose 650 MG; Start 08/20/16 at 20:30 Amlodipine Besylate (Norvasc) 10 mg DAILY PO Last administered on 08/29/16 08: 46; Admin Dose 10 MG; Start 08/21/16 at 09:00 Atenolol (Tenormin) 50 mg DAILY PO Last administered on 08/29/16 08:45; Admin Dose 50 MG; Start 08/21/16 at 09:00 Gabapentin (Neurontin) 300 mg TID PO Last administered on 08/29/16 21:10; Admin Dose 300 MG; Start 08/20/16 at 21:00 Hydrochlorothiazide (Hydrochlorothiazide) 25 mg DAILY PO Last administered on 08:45; Admin Dose 25 MG; Start 08/21/16 at 09:00 Docusate Sodium (Colace) 100 mg BID PO Last administered on 08/29/16 21:10; Admin Dose 100 MG; Start 08/21/16 at 09:00 Senna (Senokot) 1 tab HS PO Last administered on 08/29/16 21:10; Admin Dose 1 TAB; Start 08/21/16 at 21:00 Acetaminophen (Tylenol Tab) 650 mg Q4H PRN PO PAIN Last administered on 04:21; Admin Dose 650 MG; Start 08/21/16 at 02:10 Bisacodyl (Dulcolax Supp) 10 mg DAILY PRN [place] CONSTIPATION; Start 08/21/16 at 02 :10 Magnesium Hydroxide (Milk Of Mag) 30 ml BID PRN PO CONSTIPATION; Start at 02:10 Lactulose (Enulose) 20 gm DAILY PRN PO CONSTIPATION; Start 08/21/16 at 02:10 Acetaminophen/ Hydrocodone Bitart ([place] (5/325)) 1 tab Q4H PRN PO MODERATE PAIN LEVEL 4-6 Last administered on 08/24/16 07:50; Admin Dose 1 TAB; Start at 08:30 Tramadol HCl (Ultram) 25 mg Q4H PRN PO PAIN LEVEL 1-5 Last administered on 08/22 20:58; Admin Dose 25 MG; Start 08/21/16 at 09:00 Miscellaneous Information 1 ea NOTE XX ; Start 08/21/16 at 09:00 Glucose (Glutose) 15 gm Q15M PRN PO DECREASED GLUCOSE; Start 08/21/16 at 09:00 Glucose (Glutose) 22.5 gm Q15M PRN PO DECREASED GLUCOSE; Start 08/21/16 at 09: 00 Dextrose (D50w Syringe) 25 ml Q15M PRN IV DECREASED GLUCOSE; Start 08/21/16 at 09:00 Dextrose (D50w Syringe) 50 ml Q15M PRN IV DECREASED GLUCOSE; Start 08/21/16 at 09:00 Glucagon (Glucagen) 1 mg Q15M PRN IM DECREASED GLUCOSE; Start 08/21/16 at 09:00 Glucose (Glutose) 15 gm Q15M PRN BUCCAL DECREASED GLUCOSE; Start 08/21/16 at 09 :00 Atorvastatin Calcium (Lipitor) 10 mg HS PO Last administered on 08/29/16 21:10 ; Admin Dose 10 MG; Start 08/21/16 at 21:00 Acetaminophen/ Hydrocodone Bitart ([place] (5/325)) 2 tab Q4H PRN PO PAIN LEVEL 6 -10 Last administered on 08/29/16 21:12; Admin Dose 2 TAB; Start 08/24/16 at 10 :00 Ferrous Sulfate (Ferrous Sulfate (Ec)) 325 mg TID PO Last administered on 21:10; Admin Dose 325 MG; Start 08/26/16 at 13:00 NABIL MENDEZ MD Aug 29, 2016 22:22
[2016-08-30] MEDS: HYDROCODONE/APAP (5/325) TAB PO PRN ×5 (01:16→20:09)
[2016-08-30 07:30] VITALS: BP 134/60; RESP 18
[2016-08-30] MEDS: ATENOLOL 50 MG TAB PO SCH (09:00)
[2016-08-30] MEDS: DOCUSATE SODIUM 100 MG CAP PO SCH ×2 (09:17→20:08)
[2016-08-30] MEDS: metFORMIN 500 MG TAB PO SCH ×2 (09:17→17:38)
[2016-08-30] MEDS: FERROUS SULFATE (EC) 325 MG TAB PO SCH ×3 (09:17→20:09)
[2016-08-30] MEDS: HYDROCHLOROTHIAZIDE 25 MG TAB PO SCH (09:18)
[2016-08-30] MEDS: GABAPENTIN 300 MG CAP PO SCH ×3 (09:18→20:09)
[2016-08-30] MEDS: AMLODIPINE 10 MG TAB PO SCH (09:19)
--- NOTE | 2016-08-30 11:12 | PN ---
DATE: SUBJECTIVE: The patient is stable, no acute events overnight. No fevers, chills, nausea, vomiting. No shortness breath. OBJECTIVE: VITAL SIGNS: Blood pressure 136/60, respiration 18, pulse 76, temperature 97.7. HEENT: Head is normocephalic. NECK: Supple. HEART: Regular rate. LUNGS: Show diminished breath sounds at base. ABDOMEN: Soft, nontender to palpation without rebound or guarding. EXTREMITIES: Negative for clubbing, cyanosis, edema in the left leg. Right knee is covered a dress ing with a brace clean, dry and intact. DERMATOLOGIC: No rashes. MUSCULOSKELETAL: No joint effusions. NEUROLOGIC: No change in exam. MEDICATIONS: Reviewed. LABORATORY DATA: Have been reviewed. ASSESSMENT AND PLAN: 1. Status post total right knee arthroplasty. The patient is currently stable. Continue PT, OT. Continue pain control. 2. Anemia. Continue to monitor hemoglobin and hematocrit levels. Will repeat a CBC today, follow up with hematology. 3. Hypertension. Continue current blood pressure regimen. 4. Chronic kidney disease, stage III. Renal functions stable. Continue current treatment plan, haro pportive care. 5. Diabetes. Continue Accu-Cheks and sliding scale. 6. Dyslipidemia. Continue statin therapy. 7. Leukopenia. Will continue to monitor. 8. Gastrointestinal and deep venous thrombosis prophylaxis. Continue proton pump inhibitor and Xar elto. 9. General debility. Continue PT, OT. Dictated By: RUBY MARES/YUNIOR Conf#: [id number] DID#: [id number]
[2016-08-30 11:52] LABS: ADD SCAN DIFF NO
[2016-08-30 12:04] LABS: BASOPHILS % 0.5 % (0.0-2.0); EOSINOPHILS # 0.2 10^3/ul (0.0-0.5); EOSINOPHILS % 3.1 % (0.0-7.0); HEMATOCRIT 32.2 % (37.0-47.0); HEMOGLOBIN 9.6 g/dl (12.0-16.0); LYMPHOCYTES # 1.6 10^3/ul (0.8-2.9); LYMPHOCYTES % 28.2 % (15.0-51.0); MEAN CORPUSCULAR HGB CONC 29.8 g/dl (32.0-37.0); MEAN CORPUSCULAR VOLUME 77.2 fl (82.0-101.0); MEAN PLATELET VOLUME 10.3 fl (7.4-10.4); MONOCYTE # 0.4 10^3/ul (0.3-0.9); MONOCYTES % 7.5 % (0.0-11.0); NEUTROPHIL # 3.5 10^3/ul (1.6-7.5); NEUTROPHILS % 60.4 % (39.0-77.0); PLATELET COUNT 458 10^3/UL (140-415); RED BLOOD COUNT 4.17 10^6/ul (4.20-5.40); RED CELL DISTRIBUTION WIDTH 15.8 % (11.5-14.5); WHITE BLOOD COUNT 5.8 10^3/ul (4.8-10.8)
[2016-08-30] MEDS ORDERED: LIDOCAINE 4% SOLUTION 50 ML BTL TOP ONE (12:30)
--- NOTE | 2016-08-30 13:04 | CONS ---
Date/Time of Note Date/Time of Note DATE: 08/30/16 TIME: 13:03 Assessment/Plan Assessment/Plan Chief Complaint/Hosp Course ASSESSMENT AND PLAN: Anemia. - MICROCYTIC Continue to monitor hemoglobin and hematocrit levels. 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 Continue to monitor. improved Status post right knee replacement. The patient is currently stable. Continue PT, OT. Hypertension. Blood pressure remains elevated in part due to underlying pain. Continue current blood pressure regimen. Continue pain control. Chronic kidney disease, stage III. Etiology is multifactorial. Renal function appears stable. Continue current treatment plan, supportive care, renally dose all meds. Dyslipidemia. Continue statin therapy. Gastrointestinal and deep venous thrombosis prophylaxis. Continue proton pump inhibitor and Xarelto. General debility. Continue PT, OT Problems: Consultation Date/Type/Reason Admit Date/Time Aug 20, 2016 at 18:44 [facility] Referring Provider: ALEKSANDR CREWS MD 24 HR Interval Summary Free Text/Dictation stable no bleeding count improved Exam/Review of Systems Vital Signs Vitals Vital Signs Date Time Temp Pulse Resp B/P Pulse Ox O2 Delivery O2 Flow Rate FiO2 08/30/16 07:30 98.8 51 18 134/60 97 08/27/16 19:45 Room Air 08/26/16 20:00 2.0 Intake and Output 08/29/16 08/29/16 08/30/16 15:00 23:00 07:00 Intake Total 720 ml 240 ml 900 ml Balance 720 ml 240 ml 900 ml Exam HEENT: Head is normocephalic. NECK: Supple. HEART: Regular rate. LUNGS: Show diminished breath sounds at the bases. ABDOMEN: Soft, nontender to palpation. No rebound or guarding. EXTREMITIES: Negative for clubbing, cyanosis, edema on the left leg. Right leg has dressings clean, dry and intact. DERMATOLOGIC: No rashes. MUSCULOSKELETAL: No joint effusions. NEUROLOGIC: No change in exam. Results Result Diagram: 08/30/16 1114 08/26/16 0556 Results 24 hrs Laboratory Tests Test 08/30/16 11:14 White Blood Count 5.8 # Red Blood Count 4.17 L Hemoglobin 9.6 L Hematocrit 32.2 L Mean Corpuscular Volume 77.2 L Mean Corpuscular Hemoglobin 23.0 L Mean Corpuscular Hemoglobin Concent 29.8 L Red Cell Distribution Width 15.8 H Platelet Count 458 #H Mean Platelet Volume 10.3 Neutrophils % 60.4 Lymphocytes % 28.2 Monocytes % 7.5 Eosinophils % 3.1 Basophils % 0.5 Nucleated Red Blood Cells % 0.0 Neutrophils # 3.5 Lymphocytes # 1.6 Monocytes # 0.4 Eosinophils # 0.2 Basophils # 0.0 Nucleated Red Blood Cells # 0.0 Medications Medications Current Medications Acetaminophen (Tylenol Tab) 650 mg Q4H PRN PO HEADACHE OR TEMP > 101 Last administered on 08/23/16 21:40; Admin Dose 650 MG; Start 08/20/16 at 20:30 Amlodipine Besylate (Norvasc) 10 mg DAILY PO Last administered on 08/30/16 09: 19; Admin Dose 10 MG; Start 08/21/16 at 09:00 Atenolol (Tenormin) 50 mg DAILY PO Last administered on 08/29/16 08:45; Admin Dose 50 MG; Start 08/21/16 at 09:00 Gabapentin (Neurontin) 300 mg TID PO Last administered on 08/30/16 12:36; Admin Dose 300 MG; Start 08/20/16 at 21:00 Hydrochlorothiazide (Hydrochlorothiazide) 25 mg DAILY PO Last administered on 09:18; Admin Dose 25 MG; Start 08/21/16 at 09:00 Docusate Sodium (Colace) 100 mg BID PO Last administered on 08/30/16 09:17; Admin Dose 100 MG; Start 08/21/16 at 09:00 Senna (Senokot) 1 tab HS PO Last administered on 08/29/16 21:10; Admin Dose 1 TAB; Start 08/21/16 at 21:00 Acetaminophen (Tylenol Tab) 650 mg Q4H PRN PO PAIN Last administered on 04:21; Admin Dose 650 MG; Start 08/21/16 at 02:10 Bisacodyl (Dulcolax Supp) 10 mg DAILY PRN [place] CONSTIPATION; Start 08/21/16 at 02 :10 Magnesium Hydroxide (Milk Of Mag) 30 ml BID PRN PO CONSTIPATION; Start at 02:10 Lactulose (Enulose) 20 gm DAILY PRN PO CONSTIPATION; Start 08/21/16 at 02:10 Acetaminophen/ Hydrocodone Bitart ([place] (5/325)) 1 tab Q4H PRN PO MODERATE PAIN LEVEL 4-6 Last administered on 08/24/16 07:50; Admin Dose 1 TAB; Start at 08:30 Tramadol HCl (Ultram) 25 mg Q4H PRN PO PAIN LEVEL 1-5 Last administered on 08/22 20:58; Admin Dose 25 MG; Start 08/21/16 at 09:00 Miscellaneous Information 1 ea NOTE XX ; Start 08/21/16 at 09:00 Glucose (Glutose) 15 gm Q15M PRN PO DECREASED GLUCOSE; Start 08/21/16 at 09:00 Glucose (Glutose) 22.5 gm Q15M PRN PO DECREASED GLUCOSE; Start 08/21/16 at 09: 00 Dextrose (D50w Syringe) 25 ml Q15M PRN IV DECREASED GLUCOSE; Start 08/21/16 at 09:00 Dextrose (D50w Syringe) 50 ml Q15M PRN IV DECREASED GLUCOSE; Start 08/21/16 at 09:00 Glucagon (Glucagen) 1 mg Q15M PRN IM DECREASED GLUCOSE; Start 08/21/16 at 09:00 Glucose (Glutose) 15 gm Q15M PRN BUCCAL DECREASED GLUCOSE; Start 08/21/16 at 09 :00 Atorvastatin Calcium (Lipitor) 10 mg HS PO Last administered on 08/29/16 21:10 ; Admin Dose 10 MG; Start 08/21/16 at 21:00 Acetaminophen/ Hydrocodone Bitart ([place] (5/325)) 2 tab Q4H PRN PO PAIN LEVEL 6 -10 Last administered on 08/30/16 10:29; Admin Dose 2 TAB; Start 08/24/16 at 10 :00 Ferrous Sulfate (Ferrous Sulfate (Ec)) 325 mg TID PO Last administered on 12:36; Admin Dose 325 MG; Start 08/26/16 at 13:00 NABIL MENDEZ MD Aug 30, 2016 13:04
--- NOTE | 2016-08-30 13:27 | CONS ---
Date/Time of Note Date/Time of Note DATE: 08/30/16 TIME: 13:27 Consult Date/Type/Reason Admit Date/Time Aug 20, 2016 at 18:44 [facility] Ordering Provider: ALEKSANDR CREWS MD Subjective overall feeling better Objective Vital Signs Date Time Temp Pulse Resp B/P Pulse Ox O2 Delivery O2 Flow Rate FiO2 08/30/16 07:30 98.8 51 18 134/60 97 08/27/16 19:45 Room Air 08/26/16 20:00 2.0 Intake and Output 08/29/16 08/29/16 08/30/16 14:59 22:59 06:59 Intake Total 720 ml 240 ml 900 ml Balance 720 ml 240 ml 900 ml INTERDISCIPLINARY TEAM CONFERENCE BOWEL- Cont BLADDER-Cont SKIN- intact OT- DRESSING-s BATHING-s TOILETING-s PT- BED MOBILITY-sba TRANSFERS-sba AMBULATION-sba 150 feet A/P- Interdisciplinary team conference held today. Please see interdisciplinary sheet. Working toward d.c. on 09/01 with post discharge follow up of physical therapy, occupational therapy. Results/Medications Result Diagram: 08/30/16 1114 08/26/16 0556 Results 24 hrs Laboratory Tests Test 08/30/16 11:14 White Blood Count 5.8 # Red Blood Count 4.17 L Hemoglobin 9.6 L Hematocrit 32.2 L Mean Corpuscular Volume 77.2 L Mean Corpuscular Hemoglobin 23.0 L Mean Corpuscular Hemoglobin Concent 29.8 L Red Cell Distribution Width 15.8 H Platelet Count 458 #H Mean Platelet Volume 10.3 Neutrophils % 60.4 Lymphocytes % 28.2 Monocytes % 7.5 Eosinophils % 3.1 Basophils % 0.5 Nucleated Red Blood Cells % 0.0 Neutrophils # 3.5 Lymphocytes # 1.6 Monocytes # 0.4 Eosinophils # 0.2 Basophils # 0.0 Nucleated Red Blood Cells # 0.0 Medications Current Medications Acetaminophen (Tylenol Tab) 650 mg Q4H PRN PO HEADACHE OR TEMP > 101 Last administered on 08/23/16 21:40; Admin Dose 650 MG; Start 08/20/16 at 20:30 Amlodipine Besylate (Norvasc) 10 mg DAILY PO Last administered on 08/30/16 09: 19; Admin Dose 10 MG; Start 08/21/16 at 09:00 Atenolol (Tenormin) 50 mg DAILY PO Last administered on 08/29/16 08:45; Admin Dose 50 MG; Start 08/21/16 at 09:00 Gabapentin (Neurontin) 300 mg TID PO Last administered on 08/30/16 12:36; Admin Dose 300 MG; Start 08/20/16 at 21:00 Hydrochlorothiazide (Hydrochlorothiazide) 25 mg DAILY PO Last administered on 09:18; Admin Dose 25 MG; Start 08/21/16 at 09:00 Docusate Sodium (Colace) 100 mg BID PO Last administered on 08/30/16 09:17; Admin Dose 100 MG; Start 08/21/16 at 09:00 Senna (Senokot) 1 tab HS PO Last administered on 08/29/16 21:10; Admin Dose 1 TAB; Start 08/21/16 at 21:00 Acetaminophen (Tylenol Tab) 650 mg Q4H PRN PO PAIN Last administered on 04:21; Admin Dose 650 MG; Start 08/21/16 at 02:10 Bisacodyl (Dulcolax Supp) 10 mg DAILY PRN [place] CONSTIPATION; Start 08/21/16 at 02 :10 Magnesium Hydroxide (Milk Of Mag) 30 ml BID PRN PO CONSTIPATION; Start at 02:10 Lactulose (Enulose) 20 gm DAILY PRN PO CONSTIPATION; Start 08/21/16 at 02:10 Acetaminophen/ Hydrocodone Bitart ([place] (5/325)) 1 tab Q4H PRN PO MODERATE PAIN LEVEL 4-6 Last administered on 08/24/16 07:50; Admin Dose 1 TAB; Start at 08:30 Tramadol HCl (Ultram) 25 mg Q4H PRN PO PAIN LEVEL 1-5 Last administered on 08/22 20:58; Admin Dose 25 MG; Start 08/21/16 at 09:00 Miscellaneous Information 1 ea NOTE XX ; Start 08/21/16 at 09:00 Glucose (Glutose) 15 gm Q15M PRN PO DECREASED GLUCOSE; Start 08/21/16 at 09:00 Glucose (Glutose) 22.5 gm Q15M PRN PO DECREASED GLUCOSE; Start 08/21/16 at 09: 00 Dextrose (D50w Syringe) 25 ml Q15M PRN IV DECREASED GLUCOSE; Start 08/21/16 at 09:00 Dextrose (D50w Syringe) 50 ml Q15M PRN IV DECREASED GLUCOSE; Start 08/21/16 at 09:00 Glucagon (Glucagen) 1 mg Q15M PRN IM DECREASED GLUCOSE; Start 08/21/16 at 09:00 Glucose (Glutose) 15 gm Q15M PRN BUCCAL DECREASED GLUCOSE; Start 08/21/16 at 09 :00 Atorvastatin Calcium (Lipitor) 10 mg HS PO Last administered on 08/29/16 21:10 ; Admin Dose 10 MG; Start 08/21/16 at 21:00 Acetaminophen/ Hydrocodone Bitart ([place] (5/325)) 2 tab Q4H PRN PO PAIN LEVEL 6 -10 Last administered on 08/30/16 10:29; Admin Dose 2 TAB; Start 08/24/16 at 10 :00 Ferrous Sulfate (Ferrous Sulfate (Ec)) 325 mg TID PO Last administered on 12:36; Admin Dose 325 MG; Start 08/26/16 at 13:00 PIPER WAGONER MD Aug 30, 2016 13:27 PIPER WAGONER MD Aug 30, 2016 13:27
[2016-08-30] MEDS: RIVAROXABAN 10 MG TABLET PO SCH (17:38)
[2016-08-30 19:27] VITALS: BP 162/72; RESP 20
[2016-08-30] MEDS: SENNA TAB PO SCH (20:09)
[2016-08-30] MEDS: ATORVASTATIN 10 MG TAB PO SCH (20:09)
[2016-08-31] MEDS: HYDROCODONE/APAP (5/325) TAB PO PRN ×6 (00:03→21:53)
[2016-08-31 08:03] VITALS: BP 186/77; RESP 18
[2016-08-31] MEDS: GABAPENTIN 300 MG CAP PO SCH ×3 (08:34→20:34)
[2016-08-31] MEDS: DOCUSATE SODIUM 100 MG CAP PO SCH ×2 (08:35→20:33)
[2016-08-31] MEDS: metFORMIN 500 MG TAB PO SCH ×2 (08:35→17:42)
[2016-08-31] MEDS: AMLODIPINE 10 MG TAB PO SCH (08:35)
[2016-08-31] MEDS: FERROUS SULFATE (EC) 325 MG TAB PO SCH ×3 (08:36→20:33)
[2016-08-31] MEDS: HYDROCHLOROTHIAZIDE 25 MG TAB PO SCH (08:36)
--- NOTE | 2016-08-31 10:52 | CONS ---
Date/Time of Note Date/Time of Note DATE: 08/31/16 TIME: 10:52 Consult Date/Type/Reason Admit Date/Time Aug 20, 2016 at 18:44 [facility] Ordering Provider: ALEKSANDR CREWS MD Subjective Pain under good control Objective s ambulation Pulm-cta Vital Signs Date Time Temp Pulse Resp B/P Pulse Ox O2 Delivery O2 Flow Rate FiO2 08/31/16 08:03 98.8 61 18 186/77 98 08/27/16 19:45 Room Air Intake and Output 08/30/16 08/30/16 08/31/16 14:59 22:59 06:59 Intake Total 680 ml 300 ml Balance 680 ml 300 ml Results/Medications Result Diagram: 08/30/16 1114 Results 24 hrs Laboratory Tests Test 08/30/16 11:14 White Blood Count 5.8 # Red Blood Count 4.17 L Hemoglobin 9.6 L Hematocrit 32.2 L Mean Corpuscular Volume 77.2 L Mean Corpuscular Hemoglobin 23.0 L Mean Corpuscular Hemoglobin Concent 29.8 L Red Cell Distribution Width 15.8 H Platelet Count 458 #H Mean Platelet Volume 10.3 Neutrophils % 60.4 Lymphocytes % 28.2 Monocytes % 7.5 Eosinophils % 3.1 Basophils % 0.5 Nucleated Red Blood Cells % 0.0 Neutrophils # 3.5 Lymphocytes # 1.6 Monocytes # 0.4 Eosinophils # 0.2 Basophils # 0.0 Nucleated Red Blood Cells # 0.0 Medications Current Medications Acetaminophen (Tylenol Tab) 650 mg Q4H PRN PO HEADACHE OR TEMP > 101 Last administered on 08/23/16 21:40; Admin Dose 650 MG; Start 08/20/16 at 20:30 Amlodipine Besylate (Norvasc) 10 mg DAILY PO Last administered on 08/31/16 08: 35; Admin Dose 10 MG; Start 08/21/16 at 09:00 Gabapentin (Neurontin) 300 mg TID PO Last administered on 08/31/16 08:34; Admin Dose 300 MG; Start 08/20/16 at 21:00 Hydrochlorothiazide (Hydrochlorothiazide) 25 mg DAILY PO Last administered on 08:36; Admin Dose 25 MG; Start 08/21/16 at 09:00 Docusate Sodium (Colace) 100 mg BID PO Last administered on 08/31/16 08:35; Admin Dose 100 MG; Start 08/21/16 at 09:00 Senna (Senokot) 1 tab HS PO Last administered on 08/30/16 20:09; Admin Dose 1 TAB; Start 08/21/16 at 21:00 Acetaminophen (Tylenol Tab) 650 mg Q4H PRN PO PAIN Last administered on 04:21; Admin Dose 650 MG; Start 08/21/16 at 02:10 Bisacodyl (Dulcolax Supp) 10 mg DAILY PRN [place] CONSTIPATION; Start 08/21/16 at 02 :10 Magnesium Hydroxide (Milk Of Mag) 30 ml BID PRN PO CONSTIPATION; Start at 02:10 Lactulose (Enulose) 20 gm DAILY PRN PO CONSTIPATION; Start 08/21/16 at 02:10 Acetaminophen/ Hydrocodone Bitart ([place] (5/325)) 1 tab Q4H PRN PO MODERATE PAIN LEVEL 4-6 Last administered on 08/24/16 07:50; Admin Dose 1 TAB; Start at 08:30 Tramadol HCl (Ultram) 25 mg Q4H PRN PO PAIN LEVEL 1-5 Last administered on 08/22 20:58; Admin Dose 25 MG; Start 08/21/16 at 09:00 Miscellaneous Information 1 ea NOTE XX ; Start 08/21/16 at 09:00 Glucose (Glutose) 15 gm Q15M PRN PO DECREASED GLUCOSE; Start 08/21/16 at 09:00 Glucose (Glutose) 22.5 gm Q15M PRN PO DECREASED GLUCOSE; Start 08/21/16 at 09: 00 Dextrose (D50w Syringe) 25 ml Q15M PRN IV DECREASED GLUCOSE; Start 08/21/16 at 09:00 Dextrose (D50w Syringe) 50 ml Q15M PRN IV DECREASED GLUCOSE; Start 08/21/16 at 09:00 Glucagon (Glucagen) 1 mg Q15M PRN IM DECREASED GLUCOSE; Start 08/21/16 at 09:00 Glucose (Glutose) 15 gm Q15M PRN BUCCAL DECREASED GLUCOSE; Start 08/21/16 at 09 :00 Atorvastatin Calcium (Lipitor) 10 mg HS PO Last administered on 08/30/16 20:09 ; Admin Dose 10 MG; Start 08/21/16 at 21:00 Acetaminophen/ Hydrocodone Bitart ([place] (5/325)) 2 tab Q4H PRN PO PAIN LEVEL 6 -10 Last administered on 08/31/16 08:36; Admin Dose 2 TAB; Start 08/24/16 at 10 :00 Ferrous Sulfate (Ferrous Sulfate (Ec)) 325 mg TID PO Last administered on 08:36; Admin Dose 325 MG; Start 08/26/16 at 13:00 Atenolol (Tenormin) 25 mg DAILY PO ; Start 09/01/16 at 09:00 Assessment/Plan Additional Assessment/Plan Rehab- R TKR Excellent progress. Home 09/01 PIPER WAGONER MD Aug 31, 2016 10:52
--- NOTE | 2016-08-31 12:44 | PN ---
DATE: 08/31/2016 SUBJECTIVE: The patient is stable. No acute events overnight. No fevers, chills, nausea, vomiting , shortness of breath. OBJECTIVE: VITAL SIGNS: Blood pressure is 132/72, respiration 18, pulse 60, temperature 98.8. HEENT: Head is normocephalic. NECK: Supple. HEART: Regular rate. LUNGS: Show diminished breath sounds at the bases. ABDOMEN: Soft, nontender to palpation. No rebound or guarding. EXTREMITIES: Negative for clubbing, cyanosis. No edema. DERMATOLOGIC: No rashes. MUSCULOSKELETAL: No joint effusions. NEUROLOGIC: No change in exam. MEDICATIONS: The patient's medications have been reviewed. LABORATORY DATA: Shows white count 5.8, hemoglobin 9.6, hematocrit 32.2, platelet count is 458. ASSESSMENT AND PLAN: 1. Status post total right knee arthroplasty. The patient is currently stable. Continue physical therapy and occupational therapy. 2. Anemia. Hemoglobin levels are improving. Continue to monitor. 3. Hypertension. Continue blood pressure regimen. 4. Chronic kidney disease, stage III. Renal function stable. Continue supportive care. Renally d ose medications. Avoid nephrotoxins. 5. Diabetes. Continue Accu-Cheks and sliding scale. 6. Hyperlipidemia. Continue statin therapy. 7. Leukopenia, improving. 8. Gastrointestinal and deep venous thrombosis prophylaxis. Continue proton pump inhibitor and Xar elto. 9. General debility. Continue physical therapy and occupational therapy. Dictated By: RUBY MARES/YUNIOR Conf#: [id number] DID#: [id number]
[2016-08-31] MEDS: RIVAROXABAN 10 MG TABLET PO SCH (17:42)
[2016-08-31 20:12] VITALS: BP 164/69; RESP 19
[2016-08-31] MEDS: ATORVASTATIN 10 MG TAB PO SCH (20:33)
[2016-08-31] MEDS: SENNA TAB PO SCH (20:34)
--- NOTE | 2016-08-31 22:21 | CONS ---
Date/Time of Note Date/Time of Note DATE: 08/31/16 TIME: 22:21 Assessment/Plan Assessment/Plan Chief Complaint/Hosp Course ASSESSMENT AND PLAN: Anemia. - MICROCYTIC Continue to monitor hemoglobin and hematocrit levels. 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 Continue to monitor. REVIEW OLD RECORD Status post right knee replacement. The patient is currently stable. Continue PT, OT. Hypertension. Blood pressure remains elevated in part due to underlying pain. Continue current blood pressure regimen. Continue pain control. Chronic kidney disease, stage III. Etiology is multifactorial. Renal function appears stable. Continue current treatment plan, supportive care, renally dose all meds. Dyslipidemia. Continue statin therapy. Gastrointestinal and deep venous thrombosis prophylaxis. Continue proton pump inhibitor and Xarelto. General debility. Continue PT, OT Problems: Consultation Date/Type/Reason Admit Date/Time Aug 20, 2016 at 18:44 Type of Consultation: HEMEON Referring Provider: ALEKSANDR CREWS MD 24 HR Interval Summary Free Text/Dictation COUNT IMPROVING Exam/Review of Systems Vital Signs Vitals Vital Signs Date Time Temp Pulse Resp B/P Pulse Ox O2 Delivery O2 Flow Rate FiO2 08/31/16 20:12 98.2 68 19 164/69 97 08/27/16 19:45 Room Air Intake and Output 08/30/16 08/30/16 08/31/16 15:00 23:00 07:00 Intake Total 680 ml 300 ml Balance 680 ml 300 ml Exam HEENT: Head is normocephalic. NECK: Supple. HEART: Regular rate. LUNGS: Show diminished breath sounds at the bases. ABDOMEN: Soft, nontender to palpation. No rebound or guarding. EXTREMITIES: Negative for clubbing, cyanosis, edema on the left leg. Right leg has dressings clean, dry and intact. DERMATOLOGIC: No rashes. MUSCULOSKELETAL: No joint effusions. NEUROLOGIC: No change in exam. Results Result Diagram: 08/30/16 1114 Medications Medications Current Medications Acetaminophen (Tylenol Tab) 650 mg Q4H PRN PO HEADACHE OR TEMP > 101 Last administered on 08/23/16t 21:40; Admin Dose 650 MG; Start 08/20/16 at 20:30 Amlodipine Besylate (Norvasc) 10 mg DAILY PO Last administered on 08/31/16 08: 35; Admin Dose 10 MG; Start 08/21/16 at 09:00 Gabapentin (Neurontin) 300 mg TID PO Last administered on 08/31/16 20:34; Admin Dose 300 MG; Start 08/20/16 at 21:00 Hydrochlorothiazide (Hydrochlorothiazide) 25 mg DAILY PO Last administered on 08:36; Admin Dose 25 MG; Start 08/21/16 at 09:00 Docusate Sodium (Colace) 100 mg BID PO Last administered on 08/31/16 20:33; Admin Dose 100 MG; Start 08/21/16 at 09:00 Senna (Senokot) 1 tab HS PO Last administered on 08/31/16 20:34; Admin Dose 1 TAB; Start 08/21/16 at 21:00 Acetaminophen (Tylenol Tab) 650 mg Q4H PRN PO PAIN Last administered on 04:21; Admin Dose 650 MG; Start 08/21/16 at 02:10 Bisacodyl (Dulcolax Supp) 10 mg DAILY PRN [place] CONSTIPATION; Start 08/21/16 at 02 :10 Magnesium Hydroxide (Milk Of Mag) 30 ml BID PRN PO CONSTIPATION; Start at 02:10 Lactulose (Enulose) 20 gm DAILY PRN PO CONSTIPATION; Start 08/21/16 at 02:10 Acetaminophen/ Hydrocodone Bitart ([place] (5/325)) 1 tab Q4H PRN PO MODERATE PAIN LEVEL 4-6 Last administered on 08/24/16 07:50; Admin Dose 1 TAB; Start at 08:30 Tramadol HCl (Ultram) 25 mg Q4H PRN PO PAIN LEVEL 1-5 Last administered on 08/22 20:58; Admin Dose 25 MG; Start 08/21/16 at 09:00 Miscellaneous Information 1 ea NOTE XX ; Start 08/21/16 at 09:00 Glucose (Glutose) 15 gm Q15M PRN PO DECREASED GLUCOSE; Start 08/21/16 at 09:00 Glucose (Glutose) 22.5 gm Q15M PRN PO DECREASED GLUCOSE; Start 08/21/16 at 09: 00 Dextrose (D50w Syringe) 25 ml Q15M PRN IV DECREASED GLUCOSE; Start 08/21/16 at 09:00 Dextrose (D50w Syringe) 50 ml Q15M PRN IV DECREASED GLUCOSE; Start 08/21/16 at 09:00 Glucagon (Glucagen) 1 mg Q15M PRN IM DECREASED GLUCOSE; Start 08/21/16 at 09:00 Glucose (Glutose) 15 gm Q15M PRN BUCCAL DECREASED GLUCOSE; Start 08/21/16 at 09 :00 Atorvastatin Calcium (Lipitor) 10 mg HS PO Last administered on 08/31/16 20:33 ; Admin Dose 10 MG; Start 08/21/16 at 21:00 Acetaminophen/ Hydrocodone Bitart ([place] (5/325)) 2 tab Q4H PRN PO PAIN LEVEL 6 -10 Last administered on 08/31/16 21:53; Admin Dose 2 TAB; Start 08/24/16 at 10 :00 Ferrous Sulfate (Ferrous Sulfate (Ec)) 325 mg TID PO Last administered on 20:33; Admin Dose 325 MG; Start 08/26/16 at 13:00 Atenolol (Tenormin) 25 mg DAILY PO ; Start 09/01/16 at 09:00 NABIL MENDEZ MD Aug 31, 2016 22:21
[2016-09-01] MEDS: HYDROCODONE/APAP (5/325) TAB PO PRN ×2 (01:55→06:00)
[2016-09-01] MEDS: metFORMIN 500 MG TAB PO SCH (08:15)
[2016-09-01] MEDS: FERROUS SULFATE (EC) 325 MG TAB PO SCH (08:15)
[2016-09-01] MEDS: HYDROCHLOROTHIAZIDE 25 MG TAB PO SCH (08:15)
[2016-09-01] MEDS: GABAPENTIN 300 MG CAP PO SCH (08:15)
[2016-09-01] MEDS: AMLODIPINE 10 MG TAB PO SCH (08:15)
[2016-09-01] MEDS: DOCUSATE SODIUM 100 MG CAP PO SCH (08:16)
[2016-09-01] MEDS ORDERED: ATENOLOL 50 MG TAB PO SCH (09:00)
[2016-09-01] MEDS ORDERED: ATENOLOL 25 MG TAB PO SCH (09:00)
[2016-09-01 09:50] VITALS: BP 140/67; RESP 18
--- NOTE | 2016-09-01 10:17 | PN ---
DATE: 09/01/2016 SUBJECTIVE: The patient is stable, no acute events. No fevers, chills, no shortness of breath. OBJECTIVE: VITAL SIGNS: Blood pressure 164/69, respiration 19, pulse 68, temperature 98.2. HEENT: Head is normocephalic. NECK: Supple. HEART: Regular rate. LUNGS: Show diminished breath sounds at the base. ABDOMEN: Soft, nontender to palpation. No rebound or guarding. EXTREMITIES: Negative for clubbing, cyanosis, edema. DERMATOLOGIC: No rashes. MUSCULOSKELETAL: No joint effusions. NEUROLOGIC: No change in exam. MEDICATIONS: The patient's medications have been reviewed. LABORATORY DATA: Has been reviewed. No new labs. ASSESSMENT AND PLAN: 1. Status post right knee arthroplasty. The patient is currently stable. Continue PT, OT. 2. Anemia. Continue to monitor H and H levels. 3. Hypertension. Blood pressure elevated. Continue current blood pressure regimen. Adjust medica tion as needed. 4. CKD stage III, renal function stable. Continue supportive care, renally dose meds, avoid nephro toxins. 5. Diabetes. Continue Accu-Cheks and sliding scale. 6. Dyslipidemia. Continue statin therapy. 7. Leukopenia, improving. 8. Gastrointestinal and deep venous thrombosis prophylaxis. Continue PPI and Xarelto. 9. General debility. Continue PT, OT. Dictated By: RUBY MARES/YUNIOR Conf#: [id number] DID#: [id number]
[2016-09-01] MEDS ORDERED: RIVAROXABAN 10 MG TABLET PO SCH (11:00)
--- NOTE | 2016-09-01 22:32 | CONS ---
Date/Time of Note Date/Time of Note DATE: 09/01/16 TIME: 22:32 Assessment/Plan Assessment/Plan Chief Complaint/Hosp Course ASSESSMENT AND PLAN: Anemia. - MICROCYTIC Continue to monitor hemoglobin and hematocrit levels. 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 Continue to monitor. improved Status post right knee replacement. The patient is currently stable. Continue PT, OT. Hypertension. Blood pressure remains elevated in part due to underlying pain. Continue current blood pressure regimen. Continue pain control. Chronic kidney disease, stage III. Etiology is multifactorial. Renal function appears stable. Continue current treatment plan, supportive care, renally dose all meds. Dyslipidemia. Continue statin therapy. Gastrointestinal and deep venous thrombosis prophylaxis. Continue proton pump inhibitor and Xarelto. General debility. Continue PT, OT Problems: Consultation Date/Type/Reason Admit Date/Time Aug 20, 2016 at 18:44 Hx of Present Illness ASSESSMENT AND PLAN: Anemia. - MICROCYTIC Continue to monitor hemoglobin and hematocrit levels. 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 Continue to monitor. improved Status post right knee replacement. The patient is currently stable. Continue PT, OT. Hypertension. Blood pressure remains elevated in part due to underlying pain. Continue current blood pressure regimen. Continue pain control. Chronic kidney disease, stage III. Etiology is multifactorial. Renal function appears stable. Continue current treatment plan, supportive care, renally dose all meds. Dyslipidemia. Continue statin therapy. Gastrointestinal and deep venous thrombosis prophylaxis. Continue proton pump inhibitor and Xarelto. General debility. Continue PT, OT Social History Smoking Status: Never smoker Exam/Review of Systems Vital Signs Vitals Vital Signs Date Time Temp Pulse Resp B/P Pulse Ox O2 Delivery O2 Flow Rate FiO2 09/01/16 09:50 98.0 73 18 140/67 98 Intake and Output 08/31/16 08/31/16 09/01/16 15:00 23:00 07:00 Intake Total 720 ml 360 ml 550 ml Balance 720 ml 360 ml 550 ml Results Result Diagram: 08/30/16 1114 NABIL MENDEZ MD Sep 01, 2016 22:32
--- NOTE | 2016-09-01 22:34 | CONS ---
Date/Time of Note Date/Time of Note DATE: 09/01/16 TIME: 11:33 Assessment/Plan Assessment/Plan Chief Complaint/Hosp Course ASSESSMENT AND PLAN: Anemia. - MICROCYTIC Continue to monitor hemoglobin and hematocrit levels. 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 Continue to monitor. improved Status post right knee replacement. The patient is currently stable. Continue PT, OT. Hypertension. Blood pressure remains elevated in part due to underlying pain. Continue current blood pressure regimen. Continue pain control. Chronic kidney disease, stage III. Etiology is multifactorial. Renal function appears stable. Continue current treatment plan, supportive care, renally dose all meds. Dyslipidemia. Continue statin therapy. Gastrointestinal and deep venous thrombosis prophylaxis. Continue proton pump inhibitor and Xarelto. General debility. Continue PT, OT Problems: Consultation Date/Type/Reason Admit Date/Time Aug 20, 2016 at 18:44 [facility] Referring Provider: ALEKSANDR CREWS MD 24 HR Interval Summary Free Text/Dictation ALL NOTED IMPROVING GOING HOME TODAY Exam/Review of Systems Vital Signs Vitals Vital Signs Date Time Temp Pulse Resp B/P Pulse Ox O2 Delivery O2 Flow Rate FiO2 09/01/16 09:50 98.0 73 18 140/67 98 Intake and Output 08/31/16 08/31/16 09/01/16 15:00 23:00 07:00 Intake Total 720 ml 360 ml 550 ml Balance 720 ml 360 ml 550 ml Exam HEENT: Head is normocephalic. NECK: Supple. HEART: Regular rate. LUNGS: Show diminished breath sounds at the bases. ABDOMEN: Soft, nontender to palpation. No rebound or guarding. EXTREMITIES: Negative for clubbing, cyanosis, edema on the left leg. Right leg has dressings clean, dry and intact. DERMATOLOGIC: No rashes. MUSCULOSKELETAL: No joint effusions. NEUROLOGIC: No change in exam. Results Result Diagram: 08/30/16 1114 NABIL MENDEZ MD Sep 01, 2016 22:34
--- NOTE | 2016-09-02 12:50 | DS ---
DATE OF ADMISSION: 08/20/2016 DATE OF DISCHARGE: 09/01/2016 ADMISSION DIAGNOSES 1. Other orthopedic injury status post right total knee replacement. 2. Acute pain syndrome. 3. Status post acute respiratory failure. 4. Diabetes mellitus. 5. Hypertension. 6. Gastroesophageal reflux disease. 7. Impairments in self-care and mobility. DISCHARGE DIAGNOSES 1. Other orthopedic injury status post right total knee replacement. 2. Acute pain syndrome. 3. Status post acute respiratory failure. 4. Diabetes mellitus. 5. Hypertension. 6. Gastroesophageal reflux disease. 7. Improvements in self-care and mobility. HOSPITAL COURSE: The patient was admitted for comprehensive interdisciplinary acute rehab and made excellent functional gains during the course of the stay. The patient progressed from an initial ma ximal assist for self-care and mobility tasks and progressed to the point of supervised to standby a ssist for all areas of self-care and mobility including ambulating over 150 feet with the use of a f ront-wheel walker. The patient is being discharged home with the recommendation of home health phys ical therapy and occupational therapy followup. DISCHARGE MEDICATIONS: Per the medication reconciliation sheet. CONDITION ON DISCHARGE: Stable. Dictated By: PIPER HOLT/YUNIOR Conf#: [id number] DID#: [id number]
== END 2016-09-01 11:30 | disposition home health service (06) | DRG 559 ==
LOC: VRC 18:44
PROVIDERS: ADMIT Physical Medicine & Rehabilitation; ATTEND Internal Medicine Nephrology
PROC: 30233N1 Transfusion of Nonautologous Red Blood Cells into Peripheral Vein, Percutaneous Approach (ICD-10-PCS; principal; 2016-08-22)
DX: Z47.1 Aftercare following joint replacement surgery (principal); J95.821 Acute postprocedural respiratory failure; E11.9 Type 2 diabetes mellitus without complications; I12.9 Hypertensive chronic kidney disease with stage 1 through stage 4 chronic kidney disease, or unspecified chronic kidney disease; N18.3 Chronic kidney disease, stage 3 (moderate); D50.9 Iron deficiency anemia, unspecified; E78.00 Pure hypercholesterolemia, unspecified; Z96.651 Presence of right artificial knee joint; K21.9 Gastro-esophageal reflux disease without esophagitis; D72.819 Decreased white blood cell count, unspecified; E78.5 Hyperlipidemia, unspecified; Z79.02 Long term (current) use of antithrombotics/antiplatelets; R53.81 Other malaise
CPT/HCPCS: 36430; 80048; 80053; 81001; 81003; 82270; 82378; 82607; 82668; 82728; 82746; 82962; 83010; 83540; 83615; 83735; 84100; 84443; 84560; 85025; 85045; 85651; 86644; 86850; 86900; 86901; 86920; 87081; 87086; 97110; 97112; 97116; 97150; 97163; 97166; 97530; 97535; A4310; J1815; J7040; P9016